=== PATIENT | female | born 1950 | race Caucasian/White ===

== ENCOUNTER 2025-03-16 15:30 | Observation (INO) | payer MEDICARE, BC, SELFPAY ==
--- OUTSIDE RECORDS SUMMARY | 2024-02-20 05:00 | XMS_ITS | Encounter Summary ---
Author Organization [place] [address] Care Team Providers Care Crystal Gazer Name Role Phone Aminah De Leon MD Primary Care Provider [phone] Rony Tena MD Unavailable Unavailable Encounter Details Date Type Department Care Team (Latest Contact Info) Description 02/20/2024 5:00 AM EDT Hospital Encounter [facility] Referral Lab 1 [place], [place] [id number] Clary Kenny MD [phone] [phone] Encounter for general adult medical examination without abnormal findings Social History Tobacco Use Types Packs/Day Years Used Date Smoking Tobacco: Never Passive Smoke Exposure: Yes Smokeless Tobacco: Never Alcohol Use Standard Drinks/Week Comments No 0 (1 standard drink = 0.6 oz pur e alcohol) [facility] Utilities Answer Date Recorded In the past 12 months has e electric, gas, oil, or water company threatened to shut off services in your home? No 02/17/2024 Overall Financial Resource Strain (CARDIA) Answe r Date Recorded How hard is it for you to pa y for the very basics like food, housing, medical care, and heating? Not hard at all 07/15/2024 PHQ-2 Answer Date Recorded PHQ-2 Total Score 0 07/15/2024 [facility] [place] of Occupat ional Health - Occupational Stress Questionnaire Answer Date Recorded Do you feel stress - tense, restless, nervous, or anxious, or unable to sleep at night because your mind is troubled all the time - these days? Not at all 07/15/2024 Exercise Vital Sign Answer Date Recorde d On average, how many days pe r week do you engage in moderate to strenuous exercise (like a brisk walk)? 5 days 07/15/2024 On average, how many minutes do you engage in exercise at this level? 30 min 07/15/2024 Hunger Vital Sign Answer Date Recorded Within the past 12 months, y ou worried that your food would run out before you got the money to buy more. Never true 07/15/19 25 Within the past 12 months, t he food you bought just didn't last and you didn't have money to get more. Never true 07/15/2024 PRAPARE - Transportation Answer Date Re corded In the past 12 months, has l ack of transportation kept you from medical appointments or from getting medications? No 08/2024 In the past 12 months, has l ack of transportation kept you from meetings, work, or from getting things needed for daily living? No 07/15/2024 [facility] IP Transportation Answer D ate Recorded In the past 12 months, has l ack of reliable transportation kept you from medical appointments, meetings, work or from getting things needed for daily living? 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 No 07/15/2024 9:14 AM Areli Gracia RMA Is the person blind or does he/she have serious difficulty seeing even when wearing glasses? No 07/15/2024 9:14 AM Areli Gracia RMA Does this person have seriou s difficulty walking or climbing stairs? No 07/15/2024 9:14 AM Areli Gracia RM A Does this person have diffic ulty dressing or bathing? No 07/15/2024 9:14 AM Areli Gracia R MA * Is the person deaf or does he/she have serious difficulty hearing? Answer Date of Assessment Author No 09/03/2023 12:36 PM Kassi Buenrostro RMA * Is the person blind or does he/she have serious difficulty seeing even when wearing glasses? Answer Date of Assessment Author No 09/03/2023 12:36 PM Kassi Buenrostro RMA * Does this person have serious difficulty walking or climbing stairs? Answer Date of Assessment Author No 09/03/2023 12:36 PM Kassi Buenrostro RMA * Does this person have difficulty dressing or bathing? Answer Date of Assessment Author No 09/03/2023 12:36 PM Kassi Buenrostro RMA * Because of a physical, mental or emotional condition, does this person have difficulty doing errands alone such as visiting a doctor's office or shopping? Answer Date of Assessment Author No 09/03/2023 12:36 PM Kassi Buenrostro RMA * PHQ-9 Total Score Answer Date of Assessment Author 0 07/15/2024 9:14 AM Agnes Gracia RMA * Question Answer Date of Assessment Author Little interest or pleasure in doing things 0 07/15/2024 9:14 AM Areli Gracia RM A Feeling down, depressed, or hopeless 0 08/2024 9:14 AM Areli Gracia RMA PHQ-2 Total Score 0 07/15/2024 9:14 AM Areli Gracia RMA * Question Answer Date of Assessment Author Feeling Nervous, Anxious, or on Edge 0 08/2024 9:14 AM Areli Gracia RMA Not Being Able to Stop or Co ntrol Worrying 0 07/15/2024 9:14 AM EST Briones, Areli, RM A Worrying too Much About Diff erent Things 0 07/15/2024 9:14 AM Areli Gracia RM A Trouble Relaxing 0 07/15/2024 9:14 AM Areli GarciaFABRICIO Being so Restless That it is Hard to Sit Still 0 07/15/2024 9:14 AM Areli Gracia, RM A Becoming Easily Annoyed or Irritable 0 08/2024 9:14 AM Areli Gracia RMCamila Feeling Afraid as if Somethi ng Awful Might Happen 0 07/15/2024 9:14 AM Areli Gracia RM A FOREIGN-7 Total Score 0 07/15/2024 9:14 AM Areli Gracia RMA * Suicide Severity Rating Answer Date of Assessment Author No Risk 09/04/2024 3:38 PM Vivien Flores RN * [place] Suicide Severity Rating Scale (Q shift for moderate and high) Question Answer Date of Assessment Author 1. In the past month, have y ou wished you were or wished you could go to sleep and not wake up? 0 09/04/2024 3:38 PM Candace Flores RN 2. In the past month, have y ou actually had any thoughts of killing yourself? (If no, skip to question 6) 0 09/04/2024 3:38 PM Candace Flores RN 6. Have you ever done anythi ng, started to do anything, or prepared to do anything to end your life? 0 09/04/2024 3:38 PM Candace Flores RN documented as of this encounter Mental Status * Cognitive and Functional Status Question Answer Entry Date Author Because of a physical, menta l or emotional condition, does this person have difficulty doing errands alone such as visiting a doctor's office or shopping? No 07/15/2024 9:14 AM Areli Gracia RM A Because of a physical, menta l or emotional condition, does this person have serious difficulty concentrating, remembering or making decisions? No 07/15/2024 9:14 AM EST Briones, Areli, RM A * Because of a physical, mental or emotional condition, does this person have serious difficulty concentrating, remembering or making decisions? Answer Entry Date Author No 09/03/2023 12:36 PM EST Kassi Duncan, FABRICIO documented in this encounter Plan of Treatment Upcoming Encounters Date Type Department Care Team (Late st Contact Info) Description 05/30/2025 10:30 AM EST Office Visit [facility]P Neurology [facility] [address] [place] [phone] Uvaldo Donahue MD [address] NELSON [address] [place] [address] 07/18/2025 1:00 PM EST Office Visit [facility] [place] [address] [place] [address] Rony Hylton MD [address] [place] [address] [place] [address] 07/25/2025 9:00 AM EST [facility] [address] [place], [place] [phone] Aminah De Leon MD [address] [place] [address] 12/08/2025 10:00 AM EDT Appointment [facility] VASCULAR 20 [facility] [address] [place] [address] Eleni Edwards APRN [address] [place] [address] DR HERRERA [address] [place] [address] 12/08/2025 11:00 AM EDT Office Visit SEP Vascular Surg Edg 20 [facility] [address] [place] [address] Eleni Edwards APRN [address] [place] [address] [address] [place] [address] documented as of this encounter Goals Goal Patient Goal Type Associated Problems Recent Progress Patient-Stated? Author Blood Pressure < 140/90 Blood Pressure 103/70(2024 10:32 AM EDT) No Janel Tena RMA BMI (Calculated) < 30 General 30.6(02/26/20 10:32 AM EDT) No Janel Tena RMA Maintain a healthy diet, exercise regularly and maintain an ideal body weight General No Janel Tena RMA HEMOGLOBIN A1C < 7.0 Result Component 5.9( 10:01 AM EDT) No Janel Tena RMA documented as of this encounter Results * (ABNORMAL) COMPREHENSIVE METABOLIC PANEL (02/27/2024 4:50 AM EDT) Sodium 143 136 - 145 mmol/L 02/27/2024 6:44 AM EDT [facility] Potassium 3.9 3.5 - 5.0 mmol/L 02/27/2024 6:44 AM EDT [facility] Chloride 106 98 - 107 mmol/L 02/27/2024 6:44 AM EDT [facility] Total CO2 29 22 - 29 mmol/L 02/27/2024 6:44 AM EDT [facility] Anion Gap 8 7 - 16 mmol/L 02/27/2024 6:44 AM EDT [facility] Calcium 9.3 8.8 - 10.4 mg/dL 02/27/2024 6:44 AM EDT [facility] Glucose Lvl 79 70 - 99 mg/dL 02/27/2024 6:44 AM EDT [facility] BUN 18 8 - 23 mg/dL 02/27/2024 6:44 AM EDT [facility] Creatinine 1.29 0.51 - 1.30 mg/dL 02/27/2024 6:44 AM EDT [facility] Albumin 3.9 3.2 - 4.6 gm/dL 02/27/2024 6:44 AM EDT [facility] Total Protein 5.2(L) 6.4 - 8.3 gm/dL 02/27/2024 6:44 AM EDT [facility] Bili Total 0.7 0.2 - 1.3 mg/dL 02/27/2024 6:44 AM EDT [facility], [facility] ALT 10 <=41 U/L 02/27/2024 6:44 AM EDT [facility] AST 12 <=40 U/L 02/27/2024 6:44 AM EDT [facility] [place] Alk Phos 39 36 - 123 U/L 02/27/2024 6:44 AM EDT [facility] eGFR (CKD-EPIcr 2020) 43(L) >=60 mL/min/1.7 3 m2 02/27/2024 6:44 AM EDT [facility] Comment:Estimated GFR was ca lculated using the CKD-EPIcr (2020) equation refit without race. The equation is recommended by the National Kidney Foundation - [place] [employer] of Nephrology Task Force. Blood VENOUS BLOOD / Unknown Venipuncture / Unknown 02/27/2024 4:50 AM EDT 02/27/2024 5:50 AM EDT us Clary Kenny MD CHEMISTRY ORDERABLES Final Result [facility] [address] [facility], [place] [address] [facility] [address] [place], [place] [phone] documented in this encounter Visit Diagnoses Diagnosis Encounter for general adult medical examination without abnormal findings Routine general medical examination at a health care facility documented in this encounter Additional Health Concerns Assessment Noted Time A fall risk assessment has been complete d for the patient 06/18/2023 9:00 AM EST documented as of this encounter Care Teams Crystal Gazer Relationship Specialty Start Date End Date Aminah De Leon MD [address] [place] [address] PCP - General 06/16/09 Rony Tena MD [address] [place] [address] Surgery-Vascular Surgery 10/11/11 documented as of this encounter
--- OUTSIDE RECORDS SUMMARY | 2024-02-20 05:00 | XMS_ITS | Encounter Summary ---
Author Organization [place] [address] Care Team Providers Care Weight Loss Counselor Name Role Phone Aminah De Leon MD Primary Care Provider [phone] Rony Tena MD Unavailable Unavailable Encounter Details Date Type Department Care Team (Late st Contact Info) Description 02/20/2024 5:00 AM EDT Hospital Encounter [facility] Referral Lab 1 [place], [place] [phone] Clary Kenny MD [address] [place] [id number] Social History Tobacco Use Types Packs/Day Years Used Date Smoking Tobacco: Never Passive Smoke Exposure: Yes Smokeless Tobacco: Never Alcohol Use Standard Drinks/Week Comments No 0 (1 standard drink = 0.6 oz pur e alcohol) [facility] Utilities Answer Date Recorded In the past 12 months has th e electric, gas, oil, or water company threatened to shut off services in your home? No 02/17/2024 Overall Financial Resource Strain (CARDIA) Answe r Date Recorded How hard is it for you to pa y for the very basics like food, housing, medical care, and heating? Not hard at all 07/15/2024 PHQ-2 Answer Date Recorded PHQ-2 Total Score 0 07/15/2024 [facility] [place] of Occupat ional Health - Occupational Stress [...] things needed for daily living? No 07/15/2024 [facility] IP Transportation Answer D ate Recorded In [...] Sit Still 0 07/15/2024 9:14 AM Areli Gracia RM A Becoming Easily Annoyed or Irritable 0 08/2024 9:14 AM Areli GraciaFABRICIO Feeling Afraid as if Somethi ng Awful Might Happen 0 07/15/2024 9:14 AM LILLY Briones Areli, RM A FOREIGN-7 Total Score 0 07/15/2024 9:14 AM Areli GraciaFABRICIO * Suicide Severity Rating Answer Date of Assessment Author No Risk 09/04/2024 3:38 PM Vivien Flores RN * [place] Suicide Severity Rating Scale (Q shift for [...] or making decisions? No 07/15/2024 9:14 AM Areli Gracia RM A * Because of a physical, mental or emotional condition, does this person have serious difficulty concentrating, remembering or making decisions? Answer Entry Date Author No 09/03/2023 12:36 PM EST Kassi Duncan RMA documented in this encounter Plan of Treatment Upcoming Encounters Date Type Department Care Team (Late st Contact Info) Description 05/30/2025 10:30 AM EST Office Visit [facility] Neurology [facility] [address] [place] [phone] Uvaldo Donahue MD [address] [address] 07/18/2025 1:00 PM EST Office Visit [facility] [place] [address] [place] [address] Rony Hylton MD [address] [place] [address] [place] [address] 07/25/2025 9:00 AM EST [facility] [address] [place] [address] Aminah De Leon MD [address] [place] [address] 12/08/2025 10:00 AM EDT Appointment [facility] VASCULAR 20 [facility] [address] [place] [address] Eleni Edwards APRN [address] [place] [address] DR HERRERA [address] [place] [address] 12/08/2025 11:00 AM EDT Office Visit SEP Vascular Surg Edg 20 [facility] [address] [place] [address] Eleni Edwards APRN [address] [place] [address] DR HERRERA [address] [place] [address] documented as of this encounter Goals Goal [...] Tena RMA documented as of this encounter Visit Diagnoses Not on filedocumented in this encounter Additional Health Concerns Assessment Noted Time A fall risk assessment has been complete d for the patient 06/18/2023 9:00 AM EST documented as of this encounter Care Teams Weight Loss Counselor Relationship Specialty Start Date End Date Aminah De Leon MD [address] [place], [place] [phone] PCP - General 06/16/09 Rony Tena MD [address] [place] [address] Surgery-Vascular Surgery 10/11/11 documented as of this encounter
--- OUTSIDE RECORDS SUMMARY | 2024-02-20 05:00 | XMS_ITS | Encounter Summary ---
Author Organization [place] [address] Care Team Providers Care Hydrochloric Acid Operator Name Role Phone Aminah De Leon MD Primary Care Provider [phone] Royn Tena MD Unavailable Unavailable Encounter Details Date Type Department Care Team (Latest Contact Info) Description 02/20/2024 5:00 AM EDT Hospital Encounter [facility] Referral Lab 1 [place], [place] [phone] Clary Kenny MD [address] [phone] Encounter for general adult medical examination without abnormal findings Social History Tobacco Use Types Packs/Day Years Used Date Smoking Tobacco: Never Passive Smoke Exposure: Yes Smokeless Tobacco: Never Alcohol Use Standard Drinks/Week Comments No 0 (1 standard drink = 0.6 oz pur e alcohol) [facility] Utilities Answer Date Recorded In the [...] Date Recorded PHQ-2 Total Score 0 07/15/2024 [facility] [place] of Occupat ional Health - Occupational Stress [...] things needed for daily living? No 07/15/2024 [facility] IP Transportation Answer D ate Recorded In [...] 09/04/2024 3:38 PM Vivien Flores RN * [place] Suicide Severity Rating Scale (Q shift for [...] No 09/03/2023 12:36 PM EST Kassi Duncan FABRICIO documented in this encounter Plan of Treatment Upcoming Encounters Date Type Department Care Team (Late st Contact Info) Description 05/30/2025 10:30 AM EST Office Visit SEP Neurology [facility] [address] [place] [phone] Uvaldo Donahue MD [address] NELSON [address] [place] [address] 07/18/2025 1:00 PM EST Office Visit [facility] [place] [address] [place], [place] [phone] Rony Hylton MD [address] [place] [address] [place] [address] 07/25/2025 9:00 AM EST [facility] [address] [place] [address] Aminah De Leon MD [address] [place] [address] 12/08/2025 10:00 AM EDT Appointment [facility] MED OFC VASCULAR 20 [facility] [address] [place] [address] Eleni Edwards APRN [address] [place] [address] DR H[address]ERA [address] [place] [id number] 12/08/2025 11:00 AM EDT Office Visit SEP Vascular Surg Edg 20 [facility] [address] [place] [address] Eleni Edwards APRN [address] [place] [address] DR [address] [place] [address] Scheduled Orders Name Type Priority Associated Diagnoses Orde r Schedule CBC WITH DIFF Lab Routine Encounter for general adult medical examination without abnormal findings ONCE for 1 Occurrences starting 02/20/2024 until 03/26/2024 documented as of this encounter Goals Goal [...] documented as of this encounter Visit Diagnoses Diagnosis Encounter for general adult medical examination without abnormal findings Routine general medical examination at a health care facility documented in this encounter Additional Health Concerns Assessment Noted Time A fall risk assessment has been complete d for the patient 06/18/2023 9:00 AM EST documented as of this encounter Care Teams Hydrochloric Acid Operator Relationship Specialty Start Date End Date Aminah De Leon MD [address] [place] [address] PCP - General 06/16/09 Rony Tena MD [address] [place] [address] Surgery-Vascular Surgery 10/11/11 documented as of this encounter
--- OUTSIDE RECORDS SUMMARY | 2024-02-20 05:00 | XMS_ITS | Encounter Summary ---
Author Organization [place] [address] Care Team Providers Care Label Remover Name Role Phone Aminah De Leon MD Primary Care Provider [phone] Rony Tena MD Unavailable Unavailable Encounter Details Date Type Department Care Team (Latest Contact Info) Description 02/20/2024 5:00 AM EDT Hospital Encounter [facility] Referral Lab 1 [place], [place] [phone] Clary Kenny MD [address] [phone] Encounter for general adult medical examination without abnormal findings Social History Tobacco Use Types Packs/Day Years Used Date Smoking Tobacco: Never Passive Smoke Exposure: Yes Smokeless Tobacco: Never Alcohol Use Standard Drinks/Week Comments No 0 (1 standard drink = 0.6 oz pur e alcohol) [facility] Utilities Answer Date Recorded In the [...] Date Recorded PHQ-2 Total Score 0 07/15/2024 [facility] [place] of Occupat ional Health - Occupational Stress [...] things needed for daily living? No 07/15/2024 [facility] IP Transportation Answer D ate Recorded [...] 09/04/2024 3:38 PM Vivien Flores RN * [place] Suicide Severity Rating Scale (Q shift for [...] 10:30 AM EST Office Visit SEP Neurology [facility] [address] [place] [phone] Uvaldo Donahue MD [address] N[address] [place] [address] 07/18/2025 1:00 PM EST Office Visit [facility] H&[facility] [place] [address] [place] [address] Rony Hylton MD [address] [place] [address] [place] [address] 07/25/2025 9:00 AM EST [facility] [address] [place], [place] [phone] Aminah De Leon MD [address] [place] [address] 12/08/2025 10:00 AM EDT Appointment [facility] MED OFC VASCULAR 20 [facility] [address] [place] [address] Eleni Edwards APRN [address] [place] [address] DR HERRERA [address] [place] [address] 12/08/2025 11:00 AM EDT Office Visit SEP Vascular Surg Edg 20 [facility] [address] [place] [address] Eleni Edwards APRN [address] [place] [address] [address] [place] [address] Scheduled Orders Name Type Priority Associated Diagnoses Orde r Schedule PREALBUMIN Lab Routine Encounter for general adult medical [...] documented as of this encounter Care Teams Label Remover Relationship Specialty Start Date End Date Aminah De Leon MD [address] [place], [place] [phone] PCP - General 06/16/09 Rony Tena MD [address] [place] [address] Surgery-Vascular Surgery 10/11/11 documented as of this encounter
--- OUTSIDE RECORDS SUMMARY | 2024-02-20 05:00 | XMS_ITS | Encounter Summary ---
Author Organization [place] [address] Care Team Providers Care Summer Nanny Name Role Phone Aminah De Leon MD Primary Care Provider [phone] Rony Tena MD Unavailable Unavailable Encounter Details Date Type Department Care Team (Latest Contact Info) Description 02/20/2024 5:00 AM EDT Hospital Encounter [facility] Referral Lab 1 [place], [place] [id number] Clary Kenny MD [address] [phone] Encounter for general adult medical examination without abnormal findings Social History Tobacco Use Types Packs/Day Years Used Date Smoking Tobacco: Never Passive Smoke Exposure: Yes Smokeless Tobacco: Never Alcohol Use Standard Drinks/Week Comments No 0 (1 standard drink = 0.6 oz pur e alcohol) [facility] Utilities Answer Date Recorded In [...] Date Recorded PHQ-2 Total Score 0 07/15/2024 [facility] of Occupat ional Health - Occupational Stress [...] things needed for daily living? No 07/15/2024 [facility] IP Transportation Answer D ate Recorded [...] 09/04/2024 3:38 PM Vivien Flores RN * [place] Suicide Severity Rating Scale (Q shift for [...] EST Office Visit SEP Neurology [facility] [address] [place] [id number] Uvaldo Donahue MD [address] NELSON [address] [place] [address] 07/18/2025 1:00 PM EST Office Visit [facility] [address] [place] [address] Rony Hylton MD [address] [place] [address] [place] [address] 07/25/2025 9:00 AM EST [facility] [address] [place], [place] [phone] Aminah De Leon MD [address] [place] [address] 12/08/2025 10:00 AM EDT Appointment [facility] VASCULAR 20 [facility] [address] [place] [address] Eleni Edwards APRN [address] [place] [address] DR HERRERA [address] [place] [address] 12/08/2025 11:00 AM EDT Office Visit SEP Vascular Surg Edg 20 [facility] [address] [place] [address] Eleni Edwards APRN [address] [place] [address] DR [address] [place] [address] documented as of this encounter Goals Goal Patient Goal Type Associated Problems Recent Progress Patient-Stated? Author Blood Pressure < 140/90 Blood Pressure 103/70(2024 10:32 AM EDT) No MallikaJanelFABRICIO BMI (Calculated) < 30 General 30.6(02/26/20 10:32 AM EDT) No MallikaJanleFABRICIO Maintain a healthy diet, exercise regularly and maintain an ideal body weight General No MallikaJanel RMCamila HEMOGLOBIN A1C < 7.0 Result Component 5.9( 10:01 AM EDT) No MallikaLevi gipsonena RMA documented as of this encounter Results * (ABNORMAL) PREALBUMIN (02/27/2024 4:50 AM EDT) Prealbumin 14.4(L) 20.0 - 40.0 mg/dL 02/27/2024 6:44 AM EDT [facility] Blood VENOUS BLOOD / Unknown Venipuncture / Unknown 02/27/2024 4:50 AM EDT 02/27/2024 5:50 AM EDT us Clary Kenny MD CHEMISTRY ORDERABLES Final Result [facility] [address] [place] [address] , [facility] [place] [phone] documented in this encounter Visit Diagnoses Diagnosis Encounter for general adult medical examination without abnormal findings Routine general medical examination at a health care facility documented in this encounter Additional Health Concerns Assessment Noted Time A fall risk assessment has been complete d for the patient 06/18/2023 9:00 AM EST documented as of this encounter Care Teams Summer Nanny Relationship Specialty Start Date End Date Aminah De Leon MD [address] [place] [address] PCP - General 06/16/09 Rony Tena MD [address] [place] [address] Surgery-Vascular Surgery 10/11/11 documented as of this encounter
--- OUTSIDE RECORDS SUMMARY | 2024-02-20 05:00 | XMS_ITS | Encounter Summary ---
Author Organization [place] [address] Care Team Providers Care Concrete Mixer Operator Name Role Phone Aminah De Leon MD Primary Care Provider [phone] Rony Tena MD Unavailable Unavailable Encounter Details Date Type Department Care Team (Latest Contact Info) Description 02/20/2024 5:00 AM EDT Hospital Encounter [facility] Referral Lab 1 [place], [place] [id number] Clary Kenny MD [address] [phone] Encounter for general adult medical examination without abnormal findings Social History Tobacco Use Types Packs/Day Years Used Date Smoking Tobacco: Never Passive Smoke Exposure: Yes Smokeless Tobacco: Never Alcohol Use Standard Drinks/Week Comments No 0 (1 standard drink = 0.6 oz pur e alcohol) [facility] Utilities Answer Date Recorded In the [...] Date Recorded PHQ-2 Total Score 0 07/15/2024 [facility] [place] of Occupat ional Health - Occupational Stress [...] things needed for daily living? No 07/15/2024 [facility] IP Transportation Answer D ate Recorded In [...] 09/04/2024 3:38 PM Vivien Flores RN * [place] Suicide Severity Rating Scale (Q shift for [...] EST Office Visit SEP Neurology [facility] [address] [place] [phone] Uvaldo Donahue MD [address] NELSON [address] [place] [address] 07/18/2025 1:00 PM EST Office Visit [facility] H&V [place] [address] [place] [address] Rony Hylton MD [address] [place] [address] [place] [address] 07/25/2025 9:00 AM EST [facility] [address] [place], [place] [phone] Aminah De Leon MD [address] [place] [address] 12/08/2025 10:00 AM EDT Appointment [facility] VASCULAR 20 [facility] 232 [place] [address] Eleni Edwards APRN [address] [place] [address] DR HERRERA [address] [place] [address] 12/08/2025 11:00 AM EDT Office Visit [facility]P Vascular Surg Edg 20 [facility] [address] [place] [address] Eleni Edwards APRN [address] [place] [address] DR [address] [place] [address] documented as of this encounter Goals Goal Patient Goal Type Associated Problems Recent Progress Patient-Stated? Author Blood Pressure < 140/90 Blood Pressure 103/70(2024 10:32 AM EDT) No MallikaJanelFABRICIO BMI (Calculated) < 30 General 30.6(02/26/20 10:32 AM EDT) No Mallika JanelFABRICIO Maintain a healthy diet, exercise regularly and maintain an ideal body weight General No MallikaJanel RMCamila HEMOGLOBIN A1C < 7.0 Result Component 5.9( 10:01 AM EDT) No MallikaLevi gipsonena RMA documented as of this encounter Results * (ABNORMAL) PREALBUMIN (02/20/2024 4:45 AM EDT) Prealbumin 14.7(L) 20.0 - 40.0 mg/dL 02/20/2024 6:12 AM EDT [facility] Blood VENOUS BLOOD / Unknown Venipuncture / Unknown 02/20/2024 4:45 AM EDT 02/20/2024 5:28 AM EDT us Clary Kenny MD CHEMISTRY ORDERABLES Final Result [facility] [address] [place] [address] , [facility] [place] [phone] documented in this encounter Visit Diagnoses Diagnosis Encounter for general adult medical examination without abnormal findings Routine general medical examination at a health care facility documented in this encounter Additional Health Concerns Assessment Noted Time A fall risk assessment has been complete d for the patient 06/18/2023 9:00 AM EST documented as of this encounter Care Teams Concrete Mixer Operator Relationship Specialty Start Date End Date Aminah De Leon MD [address] [place] [address] PCP - General 06/16/09 Rony Tena MD [address] [place] [address] Surgery-Vascular Surgery 10/11/11 documented as of this encounter
--- OUTSIDE RECORDS SUMMARY | 2024-02-20 05:00 | XMS_ITS | Encounter Summary ---
Author [place] [address] Care Team Providers Care Small Parts Shaper Operator Name Role Phone Aminah De Leon MD Primary Care Provider [phone] Rony Tena MD Unavailable Unavailable Encounter Details Date Type Department Care Team (Latest Contact Info) Description 02/20/2024 5:00 AM EDT Hospital Encounter [facility] Referral Lab 1 [place], [place] [phone] Clary Kenny MD [address] [phone] Encounter for general adult medical examination without abnormal findings Social History Tobacco Use Types Packs/Day Years Used Date Smoking Tobacco: Never Passive Smoke Exposure: Yes Smokeless Tobacco: Never Alcohol Use Standard Drinks/Week Comments No 0 (1 standard drink = 0.6 oz pur e alcohol) [place] Utilities Answer Date Recorded In the past [...] Date Recorded PHQ-2 Total Score 0 07/15/2024 [facility] of Occupat ional Health - Occupational Stress [...] things needed for daily living? No 07/15/2024 [facility] IP Transportation Answer D ate Recorded In [...] 09/04/2024 3:38 PM Vivien Flores RN * [place] Suicide Severity Rating Scale (Q shift for [...] 10:30 AM EST Office Visit SEP Neurology [facility] [address] [place] [phone] Uvaldo Donahue MD [address]ELSON [address] [place] [address] 07/18/2025 1:00 PM EST Office Visit [facility] [facility] [place] [address] [place], [place] [phone] Rony Hylton MD [address] [place] [address] [place] [address] 07/25/2025 9:00 AM EST [facility] [address] [place] [address] Aminah De Leon MD [address] [place] [address] 12/08/2025 10:00 AM EDT Appointment [facility] VASCULAR 20 [facility] [address] [place] [address] Eleni Edwards APRN [address] [place] [address] DR HERRERA [address] [place] [address] 12/08/2025 11:00 AM EDT Office Visit [facility]P Vascular Surg Edg 20 [facility] [address] [place] [address] Eleni Edwards APRN [address] [place] [address] DR [address] [place] [address] Scheduled Orders Name Type Priority Associated Diagnoses Orde r Schedule COMPREHENSIVE METABOLIC PANEL Lab Routine Encounter for general adult medical [...] documented as of this encounter Care Teams Small Parts Shaper Operator Relationship Specialty Start Date End Date Aminah De Leon MD [address] [place] [address] PCP - General 06/16/09 Rony Tena MD [address] [place] [address] Surgery-Vascular Surgery 10/11/11 documented as of this encounter
--- OUTSIDE RECORDS SUMMARY | 2024-02-20 05:00 | XMS_ITS | Encounter Summary ---
Author [place] [address] Care Team Providers Care Osteopathy Doctor Name Role Phone Aminah De Leon MD Primary Care Provider [phone] Rony Tena MD Unavailable Unavailable Encounter Details Date Type Department Care Team (Latest Contact Info) Description 02/20/2024 5:00 AM EDT Hospital Encounter [facility] Referral Lab 1 [place], [place] [phone] Clary Kenny MD [address] [phone] Encounter for general adult medical examination without abnormal findings Social History Tobacco Use Types Packs/Day Years Used Date Smoking Tobacco: Never Passive Smoke Exposure: Yes Smokeless Tobacco: Never Alcohol Use Standard Drinks/Week Comments No 0 (1 standard drink = 0.6 oz pur e alcohol) [facility] Utilities Answer Date Recorded In [...] Date Recorded PHQ-2 Total Score 0 07/15/2024 [facility] [place] of Occupat ional Health - Occupational Stress [...] things needed for daily living? No 07/15/2024 [facility] IP Transportation Answer D ate Recorded In [...] 09/04/2024 3:38 PM Vivien Flores RN * [place] Suicide Severity Rating Scale (Q shift for [...] Neurology [facility] [address] [place] [phone] Uvaldo Donahue MD [address] NELSON [address] [place] [address] 07/18/2025 1:00 PM EST Office Visit [facility] [place] [address] [place] [address] Rony Hylton MD [address] [place] [address] [place] [address] 07/25/2025 9:00 AM EST [facility] [address] [place], [place] [phone] Aminah De Leon MD [address] [place] [address] 12/08/2025 10:00 AM EDT Appointment [facility] VASCULAR [address] [facility] [address] [place] [address] Eleni Edwards APRN [address] [place] [address] DR [address]ERRERA [address] [place] [address] 12/08/2025 11:00 AM EDT Office Visit [facility]P Vascular Surg Edg [address] [facility] [address] [place] [address] Eleni Edwards APRN [address] [place] [address] DR [address] [place] [address] documented as of this encounter Goals Goal Patient Goal Type Associated Problems Recent Progress Patient-Stated? Author Blood Pressure < 140/90 Blood Pressure 103/70(2024 10:32 AM EDT) No Janel Tena RMA BMI (Calculated) < 30 General 30.6(02/26/20 25 10:32 AM EDT) No Janel Tena RMA Maintain a healthy diet, exercise regularly and maintain an ideal body weight General No Janel Tena RMA HEMOGLOBIN A1C < 7.0 Result Component 5.9( 10:01 AM EDT) No Janel Tena RMA documented as of this encounter Results * (ABNORMAL) CBC WITH DIFF (02/20/2024 4:45 AM EDT) WBC 4.5 3.7 - 10.3 x10(3)/mcL 02/20/2024 5:49 AM EDT [facility] RBC 3.12(L) 3.90 - 5.20 x10(6)/mcL 02/20/2024 5:49 AM EDT [facility] Hgb 9.1(L) 11.2 - 15.7 g/dL 02/20/2024 5:49 AM EDT [facility] Hct 29.0(L) 34.0 - 45.0 % 02/20/2024 5:49 AM EDT [facility] MCV 92.9 80.0 - 100.0 fL 02/20/2024 5:49 AM EDT [facility] MCH 29.2 26.0 - 34.0 pg 02/20/2024 5:49 AM EDT [facility] MCHC 31.4 30.7 - 35.5 g/dL 02/20/2024 5:49 AM EDT [facility] RDW 14.2 <=14.9 % 02/20/2024 5:49 AM EDT [facility] Platelet 126(L) 155 - 369 x10(3)/mcL 02/20/2024 5:49 AM EDT [facility] MPV 11.2 8.8 - 12.5 fL 02/20/2024 5:49 AM EDT [facility] Neut Percent 40.8 % 02/20/2024 5:49 AM EDT [facility] Comment:Neutrophils equals s egs plus bands Imm Gran% 0.2 % 02/20/2024 5:49 AM EDT [facility] Comment:Automated count of m etamyelocytes, myelocytes and promyelocytes. Lymph Percent 40.7 % 02/20/2024 5:49 AM EDT [facility] [place] Percent 12.6 % 02/20/2024 5:49 AM EDT [facility] Eos Percent 4.2 % 02/20/2024 5:49 AM EDT [facility] Baso Percent 1.5 % 02/20/2024 5:49 AM EDT [facility] Neut # 1.8 1.6 - 6.1 x10(3)/mcL 02/20/2024 5:49 AM EDT [facility] Comment:Neutrophils equals s egs plus bands IMMGRAN# 0.0 0.0 - 0.1 x10(3)/mcL 02/20/2024 5:49 AM EDT [facility] Comment:Automated count of m etamyelocytes, myelocytes and promyelocytes. An absolute IG <0.1 is reported as 0.0. Lymph # 1.8 1.2 - 3.9 x10(3)/mcL 02/20/2024 5:49 AM EDT [facility] [place] # 0.6 0.3 - 0.9 x10(3)/mcL 02/20/2024 5:49 AM EDT [facility] Eos# 0.2 0.0 - 0.5 x10(3)/mcL 02/20/2024 5:49 AM EDT [facility] Baso # 0.1 0.0 - 0.1 x10(3)/mcL 02/20/2024 5:49 AM EDT [facility] Blood VENOUS BLOOD / Unknown Venipuncture / Unknown 02/20/2024 4:45 AM EDT 02/20/2024 5:28 AM EDT us Clary Kenny MD HEMATOLOGY ORDERABLES Radha lawrence Result [facility] , [place] [address] documented in this encounter Visit Diagnoses Diagnosis Encounter for general adult medical examination without abnormal findings Routine general medical examination at a health care facility documented in this encounter Additional Health Concerns Assessment Noted Time A fall risk assessment has been complete d for the patient 06/18/2023 9:00 AM EST documented as of this encounter Care Teams Osteopathy Doctor Relationship Specialty Start Date End Date Aminah De Leon MD [address] [place] [address] PCP - General 06/16/09 Rony Tena MD [address] [place] [address] Surgery-Vascular Surgery 10/11/11 documented as of this encounter
--- OUTSIDE RECORDS SUMMARY | 2025-02-25 09:52 | XMS_ITS | Encounter Summary ---
Author Organization [place] [address] Care Team Providers Care Dental Lab Technician Name Role Phone Aminah De Leon MD Primary Care Provider [phone] Rony Tena MD Unavailable Unavailable Reason for Visit * Reason Comments Follow-up iron deficiency anem ia due to chronic blood loss Encounter Details Date Type Department Care Team (Latest Contact Info) Description 02/25/2025 9:52 AM EDT - 02/25/2025 11:59 PM EDT Hospital Encounter [facility] [address] [place] [address] Suhas Merino MD [address] [place], [place] [id number] Iron deficiency anemia due to chronic blood loss (Primary Dx); Vitamin B12 deficiency Discharge Disposition: Home or Self Care Social History Tobacco Use Types Packs/Day Years Used Date Smoking Tobacco: Never Passive Smoke Exposure: Yes Smokeless Tobacco: Never Tobacco Cessation:Counseling Given: Not Answered Alcohol Use Standard Drinks/Week Comments No 0 (1 standard drink = 0.6 oz pur e alcohol) [facility] Utilities Answer Date Recorded In the [...] Date Recorded PHQ-2 Total Score 0 07/15/2024 [facility] - Occupational Stress [...] things needed for daily living? No 07/15/2024 [facility] IP Transportation Answer D ate [...] on file documented as of this encounter Last Filed Vital Signs Vital Sign Reading Time Taken Comments Blood Pressure 103/70 02/25/2025 10:32 AM EDT Pulse 58 02/25/2025 10:32 AM EDT Temperature 36.4 C (97.5 F) 02/25/2025 10:32 AM EDT Respiratory Rate 16 02/25/2025 10:32 AM EDT Oxygen Saturation 97% 02/25/2025 10:32 AM EDT Inhaled Oxygen Concentration - - Weight 85.7 kg (189 lb) 02/25/2025 10:32 AM EDT Height 167.6 cm (5' 6 ) 02/25/2025 10:32 AM EDT Body Mass Index 30.51 02/25/2025 10:32 AM EDT documented in this encounter Functional Status * Is the person deaf or does he/she have serious difficulty hearing? Answer Date of Assessment Author No 07/15/2024 9:14 AM Agnes Gracia RMA * Is the person blind or does he/she have serious difficulty seeing even when wearing glasses? Answer Date of Assessment Author No 07/15/2024 9:14 AM Agnes Gracia RMA * Does this person have serious difficulty walking or climbing stairs? Answer Date of Assessment Author No 07/15/2024 9:14 AM Agnes Gracia RMA * Does this person have difficulty dressing or bathing? Answer Date of Assessment Author No 07/15/2024 9:14 AM gAnes Gracia RMA * Because of a physical, mental or emotional condition, does this person have difficulty doing errands alone such as visiting a doctor's office or shopping? Answer Date of Assessment Author No 07/15/2024 9:14 AM Agnes Gracia RMA documented as of this encounter Mental Status * Because of a physical, mental or emotional condition, does this person have serious difficulty concentrating, remembering or making decisions? Answer Entry Date Author No 07/15/2024 9:14 AM Agnes Gracia RMA documented in this encounter Medications at Time of Discharge acetaminophen 325 mg Oral Tab Take 2 Tabs by mouth every 4 hours as needed for Fever or Headaches. 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 0 Blood Sugar Diagnostic [facility] Strip 1 Strip by [facility].(Non-Macario g; Combo Route) route 2 times daily. 180 Strip 3 5 Blood-Glucose Meter [facility] MiscIndications:Type 2 diabetes mellitus with diabetic polyneuropathy, without long-term current use of insulin ([facility]) 1 m by [facility].(Non-Macario g; Combo Route) route daily. 1 Each 4 brimonidine (ALPHAGAN) 0.2 % Opht Drops INSTILL 1 DROP INTO LEFT EYE EVERY 12 HOURS 2 busPIRone (BUSPAR) 15 mg Oral TabletIndications:Mixed anxiety and depressive disorder TAKE 1/2 TO 1 TABLET TWICE DAILY NEEDED 120 Tablet 3 5 CALCIUM CARBONATE/VITAMIN D3 (VITAMIN D-3 ORAL) Take 2,000 mg by mouth daily. carvediloL (COREG) 25 mg Oral TabletIndications:Essenti al hypertension,Takotsubo cardiomyopathy,Pure hypercholesterolemia Take 1 Tablet by mouth 2 times daily (with meals). 180 Tablet 3 5 clopidogreL (PLAVIX) 75 mg Oral TabletIndications:Atheros clerosis of [place] artery of both lower extremities with intermittent claudication,PAD (peripheral artery disease) Take 1 Tablet by mouth daily. 100 Tablet 3 5 dorzolamide-timoloL (COSOPT) 22.3-6.8 mg/mL Opht Drops Place 1 Drop into both eyes 2 times daily. 1 FLUoxetine (PROZAC) 40 mg Oral CapsuleIndications:Mixed anxiety and depressive disorder Take 1 Capsule by mouth daily. 100 Capsule 3 5 gabapentin (NEURONTIN) 300 mg Oral CapsuleIndications:Type 2 diabetes mellitus with diabetic polyneuropathy, without long-term current use of insulin (HCC),Diabetes mellitus with peripheral circulatory disorder (HCC) Take 2 Capsules by mouth 2 times daily. 120 Capsule 5 5 latanoprost (XALATAN) 0.005 % Opht Drops Apply 1 Drop to eye nightly. Left nightly 1 Leg Brace [facility] MiscIndications:Right foot drop,Right peroneal mononeuropathy 1 Device by Mis.(Non-Macario g; Combo Route) route daily. NEEDS AFO for R side 1 Each 4 losartan (COZAAR) 25 mg Oral Tablet Take 1 Tablet by mouth daily. 30 Tablet 11 5 metFORMIN (GLUCOPHAGE) 500 mg Oral TabletIndications:Type 2 diabetes mellitus with diabetic polyneuropathy, without long-term current use of insulin (HCC),Diabetes mellitus with peripheral circulatory disorder (HCC) 1 daily c supper 100 Tablet 3 5 pediatric multivitamin (FLINTSTONES MULTIVITAMIN) Oral Tablet, ChewableIndications:Right peroneal mononeuropathy Take 1 Tablet by mouth 2 times daily. 4 rosuvastatin (CRESTOR) 20 mg Oral Tablet Take 1 Tablet by mouth nightly. 100 Tablet 3 5 documented as of this encounter Discharge Disposition Disposition Code Departure Means Destination Home or Self Care documented in this encounter Progress Notes * Suhas Merino MD - 02/25/2025 10:20 AM EDT Images from the original note were not included. ONCOLOGY FOLLOW-UP: Primary Oncologist: Suhas Merino MD ONCOLOGY PROBLEM LIST: Iron Deficiency Anemia Vitamin B12 Deficiency CURRENT TREATMENT: Oral ferrous sulfate 325 mg every other day 1000 mcg of Vitamin B12 daily INTERVAL HISTORY: Ms. Moya is a 74 y.o. female who is here for follow up. Patient states that since last visit doingwell. No complaints. Mild fatigue overall. Appetite is good. Reviewed past medical, surgical, family, and social histories. PHYSICAL EXAM: Vitals: 02/25/25 1032 BP: 103/70 Pulse: 58 Resp: 16 Temp: 97.5 ??F (36.4 ??C) SpO2: 97% Wt Readings from Last 3 Encounters: 02/25/25 189 lb (85.7 kg) 01/12/25 193 lb (87.5 kg) 11/11/24 190 lb (86.2 kg) GENERAL APPEARANCE: Alert & Cooperative, Oriented X 3 LABS: CBC: Lab Results Component Value Date/Time WBC 4.4 02/25/2025 10:03 AM WBC 9.4 04/19/2017 01:40 PM RBC 4.39 02/25/2025 10:03 AM RBC 5.25 (H) 04/19/2017 01:40 PM PLT 147 (L) 02/25/2025 10:03 AM PLT 218 04/19/2017 01:40 PM CMP: Lab Results Component Value Date NA 139 02/25/2025 K 4.4 02/25/2025 CL 105 02/25/2025 CO2 23 02/25/2025 ANIONGAP 11 02/25/2025 CALCIUM 9.8 02/25/2025 GLU 113 (H) 02/25/2025 BUN 17 02/25/2025 CREATININE 1.24 02/25/2025 ALBUMIN 4.4 02/25/2025 PROT 6.9 02/25/2025 LABBILI 0.7 02/25/2025 ALT 11 02/25/2025 AST 18 02/25/2025 GFRAFRAM 101 05/22/2021 GFRNONAFRAM 87 05/22/2021 IMAGING/Testing All relevant images were reviewed in detail with the patient. All questions were addressed and answered in great detail. No results found. ASSESSMENT AND PLAN: Patient is a 73 y.o. female with a PMHx of COPD, Anxiety, PAD, Depression, DMII, HLD, HTN, ERI who is here to for follow up with hematology regarding anemia. Thrombocytopenia Vitamin B12 Deficiency Iron Deficiency Anemia H Pylori + Gastritis Negative for myeloma workup. B12 deficiency diagnosed and started on replacement along with iron replacement. Anemia worsened and had EGD/colonoscopy with tubular adenomas seen and H pylori positive which has been treated. Counts today are good with hgb of 12.6. Thrombocytopenia improved to 147. NoGI symptoms. -Level pending -Continue oral iron -Continue Vitamin B12 1000 mcg daily -GI repeat endoscopy in 5 years with colonoscopy (2029) Hypokalemia K 3.3. Possibly diarrhea induced. Encouraged fluid electrolyte hydration and bananas and additionalsources of K. She requests Dr. De Leon be cc regarding this. Follow up PRN A total of 22 minutes of the encounter was spent in performing the following complex tasks: 1) Reviewing medical records in [facility] and if applicable outside records as well 2) Ordering labs and reviewing results 3) Obtaining history and performing a physical exam 4) Counseling and educating patient, family, and caregiver(s) 5) Ordering medications, labs/tests (including independent interpretation of results when not reported separately), procedures and coordinating care amongst other healthcare professionals 6) Documentation in the EMR After the visit, the patient was given the opportunity to ask questions and all questions were answered to the patient's satisfaction. Patient agrees to the plan as highlighted above in my note and knows when/who to call regarding any concerning symptoms or questions. Suhas Merino MD Hematology/Oncology documented in this encounter Miscellaneous Notes * Addendum Note - Suhas Merino MD - 02/25/2025 10:20 AM EDTEncounter addended by: Suhas Merino MD on: 02/25/2025 11:27 AM Actions taken: Clinical Note Signed documented in this encounter Plan of Treatment Upcoming Encounters Date Type Department Care Team (Late st Contact Info) Description 05/30/2025 10:30 AM EST Office Visit [facility] Neurology [facility] [address] [place] [id number] Uvaldo Donahue MD [address] [address] 07/18/2025 1:00 PM EST Office Visit [facility] H&V [address] [address] Rony Hylton MD [address] [place] [address] [place] [address] 07/25/2025 9:00 AM EST Office Visit [facility] [address] [place] [address] Aminah De Leon MD [address] [place] [address] 12/08/2025 10:00 AM EDT Appointment [facility] VASCULAR [address] [place] [address] Eleni Edwards, [employer]ECT [address] [place] [address] [address] [place] [address] 12/08/2025 11:00 AM EDT Office Visit [facility] Vascular Surg Edg [address] [place] [address] Eleni Edwards [address] [place] [address] documented as of this encounter Goals Goal [...] documented as of this encounter Results * VITAMIN B12/ FOLIC ACID (02/25/2025 10:03 AM EDT) Vitamin B12 1,216 232 - 1,245 pg/mL 02/25/2025 5:09 PM EDT [facility] Folate >16.00 >=4.80 ng/mL 02/25/2025 5:09 PM EDT [facility] Blood VENOUS BLOOD / Unknown Venipuncture / Unknown 02/25/2025 10:03 AM EDT 02/25/2025 10:06 AM EDT Narrative [facility]REF[facility] - 02/25/2025 5:09 PM EDT Ingestion of cuco doses of biotin (>5 mg/day) taken within 8 hours of drawing blood sample can interfere with this immunoassay test. Suhas Merino MD CHEMISTRY ORDERABLES Final Res ult Performing Organization Address [facility]/ZIP Co de Phone Number [facility] [address] , [place] [address] * FERRITIN (02/25/2025 10:03 AM EDT) Ferritin 116 30 - 150 ng/mL 02/25/2025 5:40 PM EDT [facility]REFERRED [facility] Comment:The lower threshold of 30 is not statistically defined, nor internally validated. The threshold has been updated to more closely reflect a physiologic basis. Tracie Z, et al. Physiologically based serum ferritin thresholds for iron deficiency in children and non- women: a [place] National Health and Nutrition Examination Surveys (NHANES) serial cross-sectional study. Lancet Haematol 2020;8:e572-82. Blood VENOUS BLOOD / Unknown Venipuncture / Unknown 02/25/2025 10:03 AM EDT 02/25/2025 10:06 AM EDT Narrative [facility] - 02/25/2025 5:40 PM EDT Ingestion of cuco doses of biotin (>5 mg/day) taken within 8 hours of drawing blood sample can interfere with this immunoassay test. Suhas Merino MD CHEMISTRY ORDERABLES Final Res ult Performing Organization Address [facility]/ZIP Co de Phone Number [facility] [address] , [place] [address] * IRON+TIBC (02/25/2025 10:03 AM EDT) Iron 70 30 - 160 mcg/dL 02/25/2025 5:40 PM EDT [facility] Transferrin 241 200 - 360 mg/dL 02/25/2025 5:40 PM EDT [facility] Trans[employer]in Saturation 21 20 - 50 % 02/25/2025 5:40 PM EDT [facility] TIBC 337 250 - 400 mcg/dL 02/25/2025 5:40 PM EDT [facility] Blood VENOUS BLOOD / Unknown Venipuncture / Unknown 02/25/2025 10:03 AM EDT 02/25/2025 10:06 AM EDT us Suhas Merino MD CHEMISTRY ORDERABLES Final Res ult [facility] [employer] [address] [facility] [place] [address] documented in this encounter Visit Diagnoses Diagnosis Iron deficiency anemia due to chronic blood loss- Primary Iron deficiency anemia secondary to blood loss (chronic) Vitamin B12 deficiency Other B-complex deficiencies documented in this encounter Additional Health Concerns Assessment Noted Time A fall risk assessment has been complete d for the patient 07/15/2024 9:12 AM EST documented as of this encounter Care Teams Dental Lab Technician Relationship Specialty Start Date End Date Aminah De Leon MD [address] [place] [address] PCP - General 06/16/09 Rony Tena MD [address] [place] [address] Surgery-Vascular Surgery 10/11/11 documented as of this encounter
--- OUTSIDE RECORDS SUMMARY | 2025-02-25 09:52 | XMS_ITS | Encounter Summary ---
Author Organization [place] [address] Care Team Providers Care Sales Technician Name Role Phone Aminah De Leon MD Primary Care Provider [phone] Rony Tena MD Unavailable Unavailable Encounter Details Date Type Department Care Team (Latest Contact Info) Description 02/25/2025 9:52 AM EDT - 02/25/2025 11:59 PM EDT Hospital Encounter [facility] [address] [place] [address] Iron deficiency anemia due to chronic blood loss; Vitamin B12 deficiency Discharge Disposition: Home or Self Care Social History Tobacco Use Types Packs/Day Years Used Date Smoking Tobacco: Never Passive Smoke Exposure: Yes Smokeless Tobacco: Never Alcohol Use Standard Drinks/Week Comments No 0 (1 standard drink = 0.6 oz pur e alcohol) [facility] Utilities Answer Date Recorded In the past [...] Date Recorded PHQ-2 Total Score 0 07/15/2024 [facility] [place] of Occupat ional Health - Occupational Stress [...] things needed for daily living? No 07/15/2024 [facility] IP Transportation Answer D ate [...] as of this encounter Functional Status * Is the [...] 07/15/2024 9:14 AM Agnes Gracia RMA * Because of a physical, [...] hours as needed for Fever or Headaches. 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 0 Blood Sugar Diagnostic Misc Strip 1 Strip by [facility]Non-Macario g; Combo Route) route 2 times daily. 180 Strip 3 5 Blood-Glucose Meter [facility] MiscIndications:Type 2 diabetes mellitus with diabetic polyneuropathy, without long-term current use of insulin (HCC) 1 m by [facility]Non-Macario g; Combo Route) route daily. 1 Each [...] (PLAVIX) 75 mg Oral TabletIndications:Atheros clerosis [place] artery of both lower extremities with intermittent [...] eye nightly. Left nightly 1 Leg Brace [facility] MiscIndications:Right foot drop,Right peroneal mononeuropathy 1 Device by [employer](Non-Macario g; Combo Route) route daily. NEEDS AFO for R side 1 Each 4 losartan (COZAAR) 25 mg Oral Tablet Take 1 Tablet by mouth daily. 30 Tablet 11 5 metFORMIN (GLUCOPHAGE) 500 mg Oral TabletIndications:Type 2 diabetes mellitus with diabetic polyneuropathy, without long-term current use of insulin (HCC),Diabetes mellitus with peripheral circulatory disorder ([facility]) 1 daily c supper 100 Tablet 3 5 pediatric multivitamin (FLINTSTONES MULTIVITAMIN) Oral Tablet, ChewableIndications:Right peroneal mononeuropathy Take 1 Tablet by mouth 2 times daily. 4 rosuvastatin (CRESTOR) 20 mg Oral Tablet Take 1 Tablet by mouth nightly. 100 Tablet 3 5 documented as of this encounter Discharge Disposition Disposition Code Departure Means Destination Home or Self Care documented in this encounter Plan of Treatment Upcoming Encounters Date Type Department Care Team (Late st Contact Info) Description 05/30/2025 10:30 AM EST Office Visit [facility] Neurology [facility] [address] [place] [id number] Uvaldo Donahue MD [address] [place] [address] 07/18/2025 1:00 PM EST Office Visit [facility] [place] [address] [place] [address] Rony Hylton MD [address] [place] [address] [place] [address] 07/25/2025 9:00 AM EST [facility] [address] [place] [address] [place] [address] [place] [address] 12/08/2025 10:00 AM EDT Appointment [facility]C [facility] [address] [place] [address] Eleni Edwards [address] HERRERA [address] [place] [address] 12/08/2025 11:00 AM EDT Office Visit [facility]P Vascular Surg [facility] [address] [place] [address] Eleni Edwards APRN [address] [place] [address] DR HERRERA [address] [place] [address] documented as of this encounter Goals Goal [...] Tena RMA documented as of this encounter Procedures Procedure Name Priority Date/Time Associated Diagnosis Comments IRON+TIBC Routine 02/25/2025 10:03 AM EDT Iron deficiency anemia due to chronic blood loss Vitamin B12 deficiency VITAMIN B12/ FOLIC ACID Routine 02/25/2025 10:03 AM EDT Iron deficiency anemia due to chronic blood loss Vitamin B12 deficiency CBC WITH DIFF STAT 02/25/2025 10:03 AM EDT Iron deficiency anemia due to chronic blood loss Vitamin B12 deficiency FERRITIN Routine 02/25/2025 10:03 AM EDT Iron deficiency anemia due to chronic blood loss Vitamin B12 deficiency COMPREHENSIVE METABOLIC PANEL STAT 02/25/2025 10:03 AM EDT Iron deficiency anemia due to chronic blood loss Vitamin B12 deficiency documented in this encounter Results * IRON+TIBC (02/25/2025 10:03 AM EDT) Iron 70 30 - 160 mcg/dL 02/25/2025 5:40 PM EDT [facility] Transferrin 241 200 - 360 mg/dL 02/25/2025 5:40 PM EDT [facility] Transferrin Saturation 21 20 - 50 % 02/25/2025 5:40 PM EDT [facility] TIBC 337 250 - 400 mcg/dL 02/25/2025 5:40 PM EDT [facility] Blood VENOUS BLOOD / Unknown Venipuncture / Unknown 02/25/2025 10:03 AM EDT 02/25/2025 10:06 AM EDT us Suhas Merino MD CHEMISTRY ORDERABLES Final Res ult [facility] [address] [place] [address] * FERRITIN (02/25/2025 10:03 AM EDT) Ferritin 116 30 - 150 ng/mL 02/25/2025 5:40 PM EDT [facility] Comment:The lower threshold of 30 is not statistically defined, nor internally validated. The threshold has been updated to more closely reflect a physiologic basis. Tracie Honeycutt, et al. Physiologically based serum ferritin thresholds for iron deficiency in children and non- women: a [place] National Health and Nutrition Examination Surveys (NHANES) serial cross-sectional study. Lancet Haematol 2021;8:e572-82. Blood VENOUS BLOOD / Unknown Venipuncture / Unknown 02/25/2025 10:03 AM EDT 02/25/2025 10:06 AM EDT Narrative [facility] - 02/25/2025 5:40 PM EDT Ingestion of cuco doses of biotin (>5 mg/day) taken within 8 hours of drawing blood sample can interfere with this immunoassay test. Suhas Merino MD CHEMISTRY ORDERABLES Final Res ult [facility] [address] , [place] [address] * VITAMIN B12/ FOLIC ACID (02/25/2025 10:03 AM EDT) Vitamin B12 1,216 232 - 1,245 pg/mL 02/25/2025 5:09 PM EDT [facility] Folate >16.00 >=4.80 ng/mL 02/25/2025 5:09 PM EDT [facility] Blood VENOUS BLOOD / Unknown Venipuncture / Unknown 02/25/2025 10:03 AM EDT 02/25/2025 10:06 AM EDT Narrative [facility] - 02/25/2025 5:09 PM EDT Ingestion of cuco doses of biotin (>5 mg/day) taken within 8 hours of drawing blood sample can interfere with this immunoassay test. us Suhas Merino MD CHEMISTRY ORDERABLES Final Res ult [facility] [address] [facility] [place] [id number] * (ABNORMAL) COMPREHENSIVE METABOLIC PANEL (02/25/2025 10:03 AM EDT) Sodium 139 136 - 145 mmol/L 02/25/2025 10:30 AM EDT [facility] Potassium 4.4 3.5 - 5.0 mmol/L 02/25/2025 10:30 AM EDT [facility] Chloride 105 98 - 107 mmol/L 02/25/2025 10:30 AM EDT [facility] Total CO2 23 22 - 29 mmol/L 02/25/2025 10:30 AM [facility] Anion Gap 11 7 - 16 mmol/L 02/25/2025 10:30 AM EDT [facility] Calcium 9.8 8.8 - 10.4 mg/dL 02/25/2025 10:30 AM EDT [facility] Glucose Lvl 113(H) 70 - 99 mg/dL 02/25/2025 10:30 AM EDT [facility] BUN 17 8 - 23 mg/dL 02/25[facility]2025 [facility] Creatinine 1.24 0.51 - 1.30 mg/dL 02/25/2025 10:[facility] Albumin 4.4 3.2 - 4.6 gm/dL 02/25/2025 10:30 AM EDT [facility] Total Protein 6.9 6.4 - 8.3 gm/dL 02/25/2025 10:30 AM EDT [facility] Bili Total 0.7 0.2 - 1.3 mg/dL 02/25/2025 10:30 AM EDT [facility] ALT 11 <=41 U/L 02/25/2025 10:[facility] AST 18 <=40 U/L 02/25/2025 10:30 AM EDT [facility] Alk Phos 63 36 - 123 U/L 02/25/2025 10:30 AM EDT [facility] eGFR (CKD-EPIcr 2020) 45(L) >=60 mL/min/1.7 3 m2 02/25/2025 10:30 AM EDT [facility] Comment:Estimated GFR was ca lculated using the CKD-EPIcr (2020) equation refit without race. The equation is recommended by the National Kidney Foundation - [place] [employer] of Nephrology Task Force. Blood VENOUS BLOOD / Unknown Venipuncture / Unknown 02/25/2025 10:03 AM EDT 02/25/2025 10:06 AM EDT us Suhas Merino MD CHEMISTRY ORDERABLES Final Res ult [facility] [address] [place] [address] * (ABNORMAL) CBC WITH DIFF (02/25/2025 10:03 AM EDT) WBC 4.4 3.7 - 10.3 x10(3)/mcL 02/25/2025 10:09 AM EDT [facility] RBC 4.39 3.90 - 5.20 x10(6)/mcL 02/25/2025 10:09 AM EDT [facility] Hgb 12.6 11.2 - 15.7 g/dL 02/25/2025 10:09 AM EDT [facility] Hct 40.2 34.0 - 45.0 % 02/25/2025 10:09 AM EDT [facility] MCV 91.6 80.0 - 100.0 fL 02/25/2025 10:09 AM EDT [facility] MCH 28.7 26.0 - 34.0 pg 02/25/2025 10:09 AM EDT [facility] MCHC 31.3 30.7 - 35.5 g/dL 02/25/2025 10:09 AM EDT [facility] RDW 12.8 <=14.9 % 02/25/2025 10:09 AM EDT [facility] Platelet 147(L) 155 - 369 x10(3)/mcL 02/25/2025 10:09 AM EDT [facility] MPV 10.5 8.8 - 12.5 fL 02/25/2025 10:09 AM EDT [facility] Neut Percent 57.2 % 02/25/2025 10:09 AM EDT [facility] Comment:Neutrophils equals s egs plus bands Imm Gran% 0.2 % 02/25/2025 10:09 AM EDT [facility] Comment:Automated count of m etamyelocytes, myelocytes and promyelocytes. Lymph Percent 28.9 % 02/25/2025 10:09 AM EDT [facility] Elbert Percent 8.4 % 02/25/2025 10:09 AM EDT [facility] Eos Percent 3.9 % 02/25/2025 10:09 AM EDT [facility] Baso Percent 1.4 % 02/25/2025 10:09 AM EDT [facility] Neut # 2.5 1.6 - 6.1 x10(3)/mcL 02/25/2025 10:09 AM T [facility] Comment:Neutrophils equals s egs plus bands IMMGRAN# 0.0 0.0 - 0.1 x10(3)/mcL 02/25/2025 10:09 AM [facility] Comment:Automated count of m etamyelocytes, myelocytes and promyelocytes. An absolute IG <0.1 is reported as 0.0. Lymph # 1.3 1.2 - 3.9 x10(3)/mcL 02/25/2025 10:09 AM EDT [facility] Elbert # 0.4 0.3 - 0.9 x10(3)/mcL 02/25/2025 10:09 AM EDT [facility] Eos# 0.2 0.0 - 0.5 x10(3)/mcL 02/25/2025 10:09 AM EDT [facility] Baso # 0.1 0.0 - 0.1 x10(3)/mcL 02/25/2025 10:09 AM EDT [facility] Blood VENOUS BLOOD / Unknown Venipuncture / Unknown 02/25/2025 10:03 AM EDT 02/25/2025 10:06 AM EDT us Suhas Merino MD HEMATOLOGY ORDERABLES Final Re sult [facility] [address] [place] [address] documented in this encounter Visit Diagnoses Diagnosis Iron deficiency anemia due to chronic blood loss Iron deficiency anemia secondary to blood loss (chronic) Vitamin B12 deficiency Other B-complex deficiencies documented in this encounter Additional Health Concerns Assessment Noted Time A fall risk assessment has been complete d for the patient 07/15/2024 9:12 AM EST documented as of this encounter Care Teams Sales Technician Relationship Specialty Start Date End Date Aminah De Leon MD [address] [place] [address] PCP - General 06/16/09 Rony Tena MD [address] [place] [address] Surgery-Vascular Surgery 10/11/11 documented as of this encounter
[2025-03-16] VITALS (10 sets, daily range): BP systolic 116–161; BP diastolic 61–81; PULSE 58–68; RESP 10–18; TEMP 36.7–36.9; O2SAT 94–100; BMI 29.9; BMI 29.5
--- NOTE | 2025-03-16 15:31 | PC.NURSE ---
FSBS 178
--- NOTE | 2025-03-16 15:34 | CT_ITS ---
FINAL REPORT TECHNIQUE: thin section axial CT with and without IV contrast supplemented with multiplanar 3-D reconstruction of the head. This study was performed with techniques to keep radiation doses as low as reasonably achievable, (ALARA)individualized dose reduction techniques using automated exposure control or adjustment of mA and/or kV according to the patient's size were employed. CLINICAL HISTORY: possible stroke FINDINGS: The cranial circulation is unremarkable. There is no significant stenosis, aneurysm or occlusion. IMPRESSION: No evidence of stenosis or major branch occlusion. Reviewed, Interpreted and Dictated by Mian San MD Transcribed by Sarah Vaughan Authenticated and [facility]
--- NOTE | 2025-03-16 15:34 | CT_ITS ---
FINAL REPORT TECHNIQUE: NASCET technique utilized for stenosis evaluation. CLINICAL HISTORY: possible stroke FINDINGS: RIGHT CAROTID: No significant stenosis is seen of the cervical common or internal carotid artery. LEFT CAROTID: No significant stenosis seen of the cervical common or internal carotid artery. VERTEBRALS: The vertebral arteries are patent and symmetric. No significant stenosis is present. There is an elongated left thyroid lobe extending into the superior mediastinum. There is a thyroid nodule in the lower pole of the left lobe measuring 2.0 cm. IMPRESSION: No significant arterial abnormality. Left thyroid lobe nodule. Recommend follow-up ultrasound. Reviewed, Interpreted and Dictated by Mian San MD Transcribed by Sarah Vaughan Authenticated and . [facility]
--- NOTE | 2025-03-16 15:34 | CT_ITS ---
FINAL REPORT TECHNIQUE: Axial CT images were performed through the head. Coronal reformatted images were submitted. This study was performed with techniques to keep radiation doses as low as reasonably achievable (ALARA). Individualized dose reduction techniques using automated exposure control or adjustment of mA and/or kV according to the patient's size were employed. CLINICAL HISTORY: possible stroke COMPARISON: none FINDINGS: There is mild atrophy with proportional ventriculomegaly. There is no evidence of hemorrhage. There is no mass or edema identified. Hyperostosis frontalis interna. The paranasal sinuses are well aerated. IMPRESSION: No acute intracranial process. Reviewed, Interpreted and Dictated by Mian San MD Transcribed by Camelia Woodall Authenticated and [facility]
[2025-03-16] MEDS: IOPAMIDOL-370 (76%);100ML BOTTLE 80 ML IV (15:39)
[2025-03-16] MEDS: SODIUM CHLORIDE 0.9% 10ML SYR (RAD ONLY) 10 ML IV (15:39)
[2025-03-16] MEDS: 0.9 % SODIUM CHLORIDE 50 ML VIAL IV (15:39)
[2025-03-16 15:42] LABS: Hematocrit 38.5 % (37.0-47.0); Hemoglobin 12.3 g/dL (12.2-16.2); Immature Granulocytes % 0.2 %; Mean Corpuscular HGB Conc 31.9 g/dL (31.8-35.4); Mean Corpuscular Hemoglobin 29.1 pg (27.0-31.2); Mean Corpuscular Volume 91.2 fl (81-99); Nucleated Red Blood Cells % 0 %; Platelet Count 144 K/mm3 (142-424); Red Blood Count 4.22 M/mm3 (4.20-5.40); Red Cell Distribution Width-SD 43.8 fL; White Blood Count 4.8 K/mm3 (4.8-10.8)
--- OUTSIDE RECORDS SUMMARY | 2025-03-16 15:46 | XMS_ITS | Encounter Summary ---
Author Organization [place] [address] Care Team Providers Care Biometrics Technician Name Role Phone Aminah De Leon MD Primary Care Provider [phone] Rony Tena MD Unavailable Unavailable Encounter Details Date Type Department Care Team (Late st Contact Info) Description 01/16/2025 Results Follow-Up [facility] [address] [place] [address] Aminah De Leon MD [address] [place] [address] CBC WITH DIFF, COMPREHENSIVE METABOLIC PANEL, HEMOGLOBIN A1C, Additional followed-up results: 3 Social History Tobacco Use Types Packs/Day Years Used Date Smoking Tobacco: Never Passive Smoke Exposure: Yes Smokeless Tobacco: Never Alcohol Use Standard Drinks/Week Comments No 0 (1 standard drink = 0.6 oz pur e alcohol) [facility] Utilities Answer Date Recorded [...] Date Recorded PHQ-2 Total Score 0 07/15/2024 [facility] [place] of Occupat ional Health - Occupational Stress [...] things needed for daily living? No 07/15/2024 [facility] IP Transportation Answer D ate Recorded [...] Agnes Gracia RMA documented in this encounter Plan of Treatment Upcoming Encounters Date Type Department Care Team (Late st Contact Info) Description 05/30/2025 10:30 AM EST Office Visit SEP Neurology [facility] [address] [place] [phone] Uvaldo Donahue MD [address] [place] [address] [address] 07/18/2025 1:00 PM EST Office Visit SEP H&V [address] [address] Rony Hylton MD [address] [place] [address] [place] [address] 07/25/2025 9:00 AM EST Office Visit SEP [facility] [address] [place] [address] Aminah De Leon MD [address] [place] [address] 12/08/2025 10:00 AM EDT Appointment [facility] MED OFC VASCULAR [address] [facility] [address] [place] [id number] November, Eleni Puga CASTING ROOM HELPER [address] [place] [address] [address] [place] [address] 12/08/2025 11:00 AM EDT Office Visit SEP Vascular Surg Edg [address] [place] [address] NovemberEleni CASTING ROOM HELPER[address] [place] [address] documented as of this encounter Goals Goal [...] documented as of this encounter Care Teams Biometrics Technician Relationship Specialty Start Date End Date Aminah De Leon MD [address] [place] [address] PCP - General 06/16/09 Rony Tena MD [address] [place] [address] Surgery-Vascular Surgery 10/11/11 documented as of this encounter
--- OUTSIDE RECORDS SUMMARY | 2025-03-16 15:46 | XMS_ITS | Clinical Summary ---
Author Organization [facility] Address [address] [facility] [place] [address] Phone Care Team Providers Care Dinkey Motor Operator Name Role Phone Christina VALDEZ, Marlon Unavailable [phone] Conditions or Problems Problem Name Problem Code Onset Date Status Entry Date Provider Comment Standard Description Annotate LUMBAR RADICULOPATHY 351562430 (SNOMED CT) 07/28 Active 07/28 Suman Adames MD Lumbar radiculopathy Take Note of HYPERTENSION [id number] (SNOMED CT) 07/28 Active 07/28 Suman Adames MD Hypertensive disorder Take Note of DIABETES MELLITUS [id number] (SNOMED CT) 07/28 Active 07/28 Suman Adames MD Diabetes mellitus Medications Medication Instructions Start Date Stop Date Generic Name NDC Provider NEURONTIN 300 MG CAPS 1 po q day x 3 days; 1 po bid for 3 days; then 1 po tid as needed for nerve pain. 5 GABAPENTIN [id number] Suman Adames MD METFORMIN HCL ER [id number] [facility] 5 METFORMIN HCL TB24 [id number] Suman Adames MD ZOLOFT TABS [facility] 5 SERTRALINE HCL TABS [id number] Suman Adames MD DIOVAN TABS [facility] 5 VALSARTAN TABS [phone] Suman Adames MD Medications Administered No information available. Allergies, Adverse Reactions, Alerts Observed no known allergies at Results No information available. Plan of Care No information available. Procedures No information available. Vital Signs Date Name Value Unit Description BP Diastolic 80 mm[Hg] blood pressu re, diastolic BP Systolic 130 mm[Hg] blood pressur e, systolic Height 67 [in_us] height E&M Weight Measured 236 [lb_av] weight E& M Weight Measured 236 [lb_av] weight E& M Immunizations No information available. Advance Directives No information available.
--- OUTSIDE RECORDS SUMMARY | 2025-03-16 15:46 | XMS_ITS | Encounter Summary ---
Author Organization [place] [address] Care Team Providers Care Intensive Care Specialist Name Role Phone Aminah De Leon MD Primary Care Provider [phone] Rony Tena MD Unavailable Unavailable Encounter Details Date Type Department Care Team (Late st Contact Info) Description 02/25/2025 Orders Only [facility] [address] [place] [address] Sofia Delaney MA Iron deficiency anemia due to chronic blood loss (Primary Dx); Vitamin B12 deficiency Social History Tobacco Use Types Packs/Day Years Used Date Smoking Tobacco: Never Passive Smoke Exposure: Yes Smokeless Tobacco: Never Alcohol Use Standard Drinks/Week Comments No 0 (1 standard drink = 0.6 oz pur e alcohol) [facility] Utilities Answer Date Recorded In [...] Date Recorded PHQ-2 Total Score 0 07/15/2024 [facility] Occupat ional [facility] - Occupational Stress Questionnaire Answer Date Recorded [...] things needed for daily living? No 07/15/2024 [facility] IP Transportation Answer D ate Recorded [...] 10:30 AM EST Office Visit SEP Neurology [facility] [address] [place] [address] Uvaldo Donahue MD [address] [address] 07/18/2025 1:00 PM EST Office Visit [facility] [place] [address] [place] [address] Rony Hylton MD [address] [place] [address] [place] [address] 07/25/2025 9:00 AM EST Office Visit [facility] [address] [place] [address] Aminah De Leon MD [address] [place] [address] 12/08/2025 10:00 AM EDT Appointment [facility] VASCULAR 20 [facility] [address] [place] [address] NovemberEleni [employer] [address] [place] [address] 12/08/2025 11:00 AM EDT Office Visit SEP Vascular Surg Edg [address] [place] [address] NovemberEleni APRN [address] [place] [address] [address] [place] [address] documented as of this encounter [...] encounter Results * (ABNORMAL) COMPREHENSIVE METABOLIC PANEL (02/25/2025 10:03 AM EDT) Sodium 139 136 - 145 mmol/L 02/25/2025 10:30 AM [facility]T [facility] Potassium 4.4 3.5 - 5.0 mmol/L 02/25/2025 10:30 AM EDT [facility] Chloride 105 98 - 107 mmol/L 02/25/2025 10:30 AM EDT [facility] Total CO2 23 22 - 29 mmol/L 02/25/2025 10:30 AM T [facility] Anion Gap 11 7 - 16 mmol/L 02/25/2025 10:30 AM EDT [facility] Calcium 9.8 8.8 - 10.4 mg/dL 02/25/2025 10:30 AM EDT [facility] Glucose Lvl 113(H) 70 - 99 mg/dL 02/25/2025 10:30 AM EDT [facility] BUN 17 8 - 23 mg/dL 02/25/2025 10:30 AM EDT [facility] Creatinine 1.24 0.51 - 1.30 mg/dL 02/25/2025 10:30 AM EDT [facility] Albumin 4.4 3.2 - 4.6 gm/dL 02/25/2025 10:30 AM EDT [facility] Total Protein 6.9 6.4 - 8.3 gm/dL 02/25/2025 10:30 AM EDT [facility] Bili Total 0.7 0.2 - 1.3 mg/dL 02/25/2025 10:30 AM EDT [facility] ALT 11 <=41 U/L 02/25/2025 10:30 AM EDT [facility] AST 18 <=40 U/L 02/25/2025 10:30 AM EDT [facility] Alk Phos 63 36 - 123 U/L 02/25/2025 10:30 AM EDT [facility] eGFR (CKD-EPIcr 2020) 45(L) >=60 mL/min/1.7 3 m2 02/25/2025 10:30 AM EDT [facility] Comment:Estimated GFR was ca lculated using the CKD-EPIcr (2020) equation refit without race. The equation is recommended by the National Kidney Foundation - [place] [employer] Nephrology Task Force. Blood VENOUS BLOOD / Unknown Venipuncture / Unknown 02/25/2025 10:03 AM EDT 02/25/2025 10:06 AM EDT us Suhas Merino MD CHEMISTRY ORDERABLES Final Res ult [facility] [address] [place] [address] * (ABNORMAL) CBC WITH DIFF (02/25/2025 10:03 AM EDT) WBC 4.4 3.7 - 10.3 x10(3)/mcL 02/25/2025 10:09 AM EDT [facility] RBC 4.39 3.90 - 5.20 x10(6)/mcL 02/25/2025 10:09 AM EDT [facility] Hgb 12.6 11.2 - 15.7 g/dL 02/25/2025 10:09 AM EDT [facility] Hct 40.2 34.0 - 45.0 % 02/25/2025 10:09 AM EDT [facility] MCV 91.6 80.0 - 100.0 fL 02/25/2025 10:09 AM EDT [facility] MCH 28.7 26.0 - 34.0 pg 02/25/2025 10:09 AM EDT [facility] MCHC 31.3 30.7 - 35.5 g/dL 02/25/2025 10:[facility] RDW 12.8 <=14.9 % 02/25/2025 10:09 AM EDT [facility] Platelet 147(L) 155 - 369 x10(3)/mcL 02/25/2025 10:09 AM [facility] MPV 10.5 8.8 - 12.5 fL 02/25/2025 10:09 AM EDT [facility] Neut Percent 57.2 % 02/25/2025 10:09 AM EDT [facility] Comment:Neutrophils equals s egs plus bands Imm Gran% 0.2 % 02/25/2025 10:09 AM EDT [facility] Comment:Automated count of m etamyelocytes, myelocytes and promyelocytes. Lymph Percent 28.9 % 02/25/2025 10:09 AM EDT [facility] [place] Percent 8.4 % 02/25/2025 10:09 AM EDT [facility] Eos Percent 3.9 % 02/25/2025 10:09 AM EDT [facility] Baso Percent 1.4 % 02/25/2025 10:09 AM EDT [facility] Neut # 2.5 1.6 - 6.1 x10(3)/mcL 02/25/2025 10:09 AM EDT [facility] Comment:Neutrophils equals s egs plus bands IMMGRAN# 0.0 0.0 - 0.1 x10(3)/[facility] 02/25/2025 10:09 AM EDT [facility] Comment:Automated count of m etamyelocytes, myelocytes and promyelocytes. An absolute IG <0.1 is reported as 0.0. Lymph # 1.3 1.2 - 3.9 x10(3)/[facility] 02/25/2025 10:09 AM EDT [facility] [place] # 0.4 0.3 - 0.9 x10(3)/[facility] 02/25/2025 10:09 AM EDT [facility] Eos# 0.2 0.0 - 0.5 x10(3)/[facility] 02/25/2025 10:09 AM EDT [facility] Baso # 0.1 0.0 - 0.1 x10(3)/[facility] 02/25/2025 10:09 AM EDT [facility] Blood VENOUS BLOOD / Unknown Venipuncture / Unknown 02/25/2025 10:03 AM EDT 02/25/2025 10:06 AM EDT us Suhas Merino MD HEMATOLOGY ORDERABLES Final Re sult [facility] [address] [place] [address] documented in this encounter Visit [...] documented as of this encounter Care Teams Intensive Care Specialist Relationship Specialty Start Date End Date Aminah De Leon MD [address] [place] [address] PCP - General 06/16/09 Rony Tena MD [address] [place] [address] Surgery-Vascular Surgery 10/11/11 documented as of this encounter
--- OUTSIDE RECORDS SUMMARY | 2025-03-16 15:46 | XMS_ITS | Encounter Summary ---
Author Organization [place] [address] Care Team Providers Care Cotton Grower Name Role Phone Aminah De Leon MD Primary Care Provider [phone] Rony Tena MD Unavailable Unavailable Encounter Details Date Type Department Care Team (Late st Contact Info) Description 02/25/2025 Results Follow-Up Cancer Care Medical Oncology [place] [id number] Suhas Merino MD [address] [place] [address] IRON+TIBC, VITAMIN B12/ FOLIC ACID Social History Tobacco Use Types Packs/Day Years Used Date Smoking Tobacco: Never Passive Smoke Exposure: Yes Smokeless Tobacco: Never Alcohol Use Standard Drinks/Week Comments No 0 (1 standard drink = 0.6 oz pur e alcohol) [facility] Utilities Answer Date Recorded In the past [...] Date Recorded PHQ-2 Total Score 0 07/15/2024 [facility] Occupat ional Health - Occupational Stress [...] things needed for daily living? No 07/15/2024 [facility] IP Transportation Answer D ate Recorded [...] Assessment Author No 07/15/2024 9:14 AM Agnes Garcia RMA * Is the person blind or [...] 10:30 AM EST Office Visit SEP Neurology [facility] [address] [place] [address] Uvaldo Donahue MD [address] [address] 07/18/2025 1:00 PM EST Office Visit SEP H&[facility] [address] [address] Rony Hylton MD [address] [place] [address] [place] [address] 07/25/2025 9:00 AM EST [facility] [address] [place] [address] Aminah De Leon MD [address] [place] [address] 12/08/2025 10:00 AM EDT Appointment [facility] MED OFC VASCULAR 20 [facility] [address] [place] [id number] MayEleni JACQUARD LO[employer] WEAVER [address] [place] [address] [address] [place] [address] 12/08/2025 11:00 AM EDT Office Visit SEP Vascular Surg Edg 20 [facility] [address] [place] [address] MayEleni JACQUARD LO[address] WEAVER [address] [place] [address] [address] [place], [place] [id number] documented as of this encounter Goals Goal [...] documented as of this encounter Care Teams Cotton Grower Relationship Specialty Start [place] [address] [place] [address] PCP - General 06/16/09 Rony Tena MD [address] [place] [address] Surgery-Vascular Surgery 10/11/11 documented as of this encounter
--- OUTSIDE RECORDS SUMMARY | 2025-03-16 15:47 | XMS_ITS | Clinical Summary ---
Author Organization [facility] [place] [facility] Address [address] [place] [address] Phone Care Team Providers Care Stripper Black And White Name Role Phone Aminah De Leon MD Primary Care Provider [phone] Rony Tena MD Unavailable Unavailable Allergies Active Allergy Reactions Criticality Noted Date Comments Atorvastatin Myalgia Medium 09/15/2013 Medications CALCIUM CARBONATE/VITAMIN D3 (VITAMIN D-3 ORAL) Take 2,000 mg by mouth daily. Active aspirin 81 mg Oral Tablet, Delayed Release (E.C.)Indications:Athero sclerosis of mcgrath arteries of extremities with intermittent claudication, bilateral legs Take 1 Tab by mouth daily. 02/10/20 20 Active dorzolamide-timoloL (COSOPT) 22.3-6.8 mg/mL Opht Drops Place 1 Drop into both eyes 2 times daily. 09/14/19 21 Active acetaminophen 325 mg Oral Tab Take 2 Tabs by mouth every 4 hours as needed for Fever or Headaches. 02/14/20 21 Active latanoprost (XALATAN) 0.005 % Opht Drops Apply 1 Drop to eye nightly. Left nightly 05/16/20 21 Active brimonidine (ALPHAGAN) 0.2 % Opht Drops INSTILL 1 DROP INTO LEFT EYE EVERY 12 HOURS 12/11/19 22 Active Leg Brace [facility] MiscIndications:Right foot drop,Right peroneal mononeuropathy 1 Device by [facility].(Non-D rug; Combo Route) route daily. NEEDS AFO for R side 1 Each 09/18/19 24 Active Blood-Glucose Meter [facility] MiscIndications:Type 2 diabetes mellitus with diabetic polyneuropathy, without long-term current use of insulin ([facility]) 1 m by [facility].(Non-D rug; Combo Route) route daily. 1 Each 01/12/20 24 Active pediatric multivitamin (FLINTSTONES MULTIVITAMIN) Oral Tablet, ChewableIndications:Righ t peroneal mononeuropathy Take 1 Tablet by mouth 2 times daily. 03/03/20 24 Active carvediloL (COREG) 25 mg Oral TabletIndications:Essent ial hypertension,Takotsubo cardiomyopathy,Pure hypercholesterolemia Take 1 Tablet by mouth 2 times daily (with meals). 180 Tablet 10/05/19 25 Active losartan (COZAAR) 25 mg Oral Tablet Take 1 Tablet by mouth daily. 30 Tablet 10/05/19 25 Active FLUoxetine (PROZAC) 40 mg Oral CapsuleIndications:Mixed anxiety and depressive disorder Take 1 Capsule by mouth daily. 100 Capsule 3 01/13/20 25 Active gabapentin (NEURONTIN) 300 mg Oral CapsuleIndications:Type 2 diabetes mellitus with diabetic polyneuropathy, without long-term current use of insulin (HCC),Diabetes mellitus with peripheral circulatory disorder (HCC) Take 2 Capsules by mouth 2 times daily. 120 Capsule 5 01/26/20 25 Active rosuvastatin (CRESTOR) 20 mg Oral Tablet Take 1 Tablet by mouth nightly. 100 Tablet 3 01/13/20 25 Active clopidogreL (PLAVIX) 75 mg Oral TabletIndications:Athero sclerosis of mcgrath artery of both lower extremities with intermittent claudication,PAD (peripheral artery disease) Take 1 Tablet by mouth daily. 100 Tablet 3 01/13/20 25 Active metFORMIN (GLUCOPHAGE) 500 mg Oral TabletIndications:Type 2 diabetes mellitus with diabetic polyneuropathy, without long-term current use of insulin (HCC),Diabetes mellitus with peripheral circulatory disorder (HCC) 1 daily c supper 100 Tablet 3 01/13/20 25 Active Blood Sugar Diagnostic Misc Strip 1 Strip by Misc.(Non-D rug; Combo Route) route 2 times daily. 180 Strip 3 01/13/20 25 Active busPIRone (BUSPAR) 15 mg Oral TabletIndications:Mixed anxiety and depressive disorder TAKE 1/2 TO 1 TABLET TWICE DAILY NEEDED 120 Tablet 3 01/13/20 25 Active Active Problems Patient Care Coordination No te Formatting of this note migh t be different from the original. 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 Thrombocytopenia 03/26/2024 Falls frequently 03/12/2024 Syncope due to orthostatic hypotension Decrease in appetite 03/03/2024 [place] light chain disease 03/03/2024 Contusion of face, initial encounter 02/17/2024 Fall on same level from tripping 02/17/2024 Left foot drop 02/17/2024 Right peroneal mononeuropathy 09/18/2023 Assessment & Plan (01/12/2025 9:46 AM EDT): Much improvement Her foot drop and neuropathy are so much better Right foot drop 09/18/2023 Chronic obstructive pulmonary disease 06/17/2023 Lumbar pain 02/20/2021 Sciatica of right side 02/11/2021 ERI on CPAP 05/15/2020 Overview (05/15/2020): mod ERI with RDI of 17.5 cpap Empty sella 04/21/2018 Overview (05/15/2020): Partially empty sella per MRI 2018 Sensorineural hearing loss, bilateral 10/29/2017 Mixed conductive and sensori neural hearing loss of right ear with restricted hearing of left ear 10/29/2017 Pure hypercholesterolemia 06/13/2017 Takotsubo cardiomyopathy 04/20/2017 Overview (05/15/2020): Takotsubo Cardiomyopathy Resolved/asymptomatic Apr 2017 - s/p LHC-normal coronary arteries; LVEF 25% per [facility], echo May 2017 - echo - LVSF is normal Continue losartan and coreg Essential hypertension 09/12/2016 Assessment & Plan (01/12/2025 9:46 AM EDT): Doing ok Vitals: 01/12/25 0855 BP: (!) 142/86 Pulse: 60 Temp: 98.2 F (36.8 C) SpO2: 97% BP at home May need to raise the losartan to 50 mg Orders: CBC WITH DIFF; Future COMPREHENSIVE METABOLIC PANEL; Future Assessment & Plan (07/15/2024 9:34 AM EST): Orders: COMPREHENSIVE METABOLIC PANEL; Future CBC WITH DIFF; Future Type 2 diabetes mellitus wit h diabetic polyneuropathy, without long-term current use of insulin 09/12/2016 Assessment & Plan (01/12/2025 9:46 AM EDT): Well controlled Orders: MICROALBUMIN/CREATININE RATIO URINE; Future COMPREHENSIVE METABOLIC PANEL; Future HEMOGLOBIN A1C; Future LIPID SCREEN; Future THYROID STIMULATING HORMONE; Future gabapentin (NEURONTIN) 300 mg Oral Capsule; Take 2 Capsules by mouth 2 times daily. metFORMIN (GLUCOPHAGE) 500 mg Oral Tablet; 1 daily c supper Assessment & Plan (07/15/2024 9:34 AM EST): Orders: gabapentin (NEURONTIN) 300 mg Oral Capsule; Take 2 Capsules by mouth 2 times daily. THYROID STIMULATING HORMONE; Future LIPID SCREEN; Future HEMOGLOBIN A1C; Future COMPREHENSIVE METABOLIC PANEL; Future MICROALBUMIN/CREATININE RATIO URINE; Future Assessment & Plan (04/13/2024 11:39 AM EDT): Orders: gabapentin (NEURONTIN) 300 mg Oral Capsule; Take 2 Capsules by mouth 2 times daily. Atherosclerosis of mcgrath ar kayli of extremity with intermittent claudication 01/02/2016 Assessment & Plan (01/12/2025 9:46 AM EDT): Orders: clopidogreL (PLAVIX) 75 mg Oral Tablet; Take 1 Tablet by mouth daily. PAD (peripheral artery disease) 01/02/2016 Overview (05/15/2020): Asymptomatic currently 01/20/2012 - right femoral-AKpop Goretex bypass 10/18/2011 - Left SFA/pop mechanical thrombectomy and re-stent10/01/2011 - Left SFA/pop PTLA/stent Follows with Dr Tena -Vascular Surgery Cont clopidogrel, statin and asa Assessment & Plan (01/12/2025 9:46 AM EDT): Orders: clopidogreL (PLAVIX) 75 mg Oral Tablet; Take 1 Tablet by mouth daily. Mixed anxiety and depressive disorder 06/27/2015 Assessment & Plan (01/12/2025 9:46 AM EDT): Doing ok but coming off the remeron gained a lot of weight Orders: FLUoxetine (PROZAC) 40 mg Oral Capsule; Take 1 Capsule by mouth daily. busPIRone (BUSPAR) 15 mg Oral Tablet; TAKE 1/2 TO 1 TABLET TWICE DAILY NEEDED Cystocele with uterine prolapse 02/23/2015 Diabetes mellitus with peripheral circulatory di sorder 01/12/2013 Assessment & Plan (01/12/2025 9:46 AM EDT): Orders: MICROALBUMIN/CREATININE RATIO URINE; Future gabapentin (NEURONTIN) 300 mg Oral Capsule; Take 2 Capsules by mouth 2 times daily. metFORMIN (GLUCOPHAGE) 500 mg Oral Tablet; 1 daily c supper Assessment & Plan (07/15/2024 9:34 AM EST): Orders: gabapentin (NEURONTIN) 300 mg Oral Capsule; Take 2 Capsules by mouth 2 times daily. MICROALBUMIN/CREATININE RATIO URINE; Future Assessment & Plan (04/13/2024 11:39 AM EDT): Orders: gabapentin (NEURONTIN) 300 mg Oral Capsule; Take 2 Capsules by mouth 2 times daily. 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 02/03/2017 11/11/2024 PVD (peripheral vascular dis ease) with claudication 09/12/2011 10/15/2017 Hyperlipidemia 03/21/2011 06/13/2017 HTN (hypertension) 05/06/2010 7 Diabetes mellitus 05/06/2010 10/15/2017 Hemoptysis 05/15/2020 Encounters Date Type Department Care Team Description 02/25/2025 9:52 AM EDT - 02/25/2025 11:59 PM EDT Hospital Encounter [facility] [address] [place], [place] [id number] Suhas Merino MD Iron deficiency anemia due to chronic blood loss (Primary Dx); Vitamin B12 deficiency Discharge Disposition: Home or Self Care 02/25/2025 9:52 AM EDT - 02/25/2025 11:59 PM EDT Hospital Encounter [facility] [address] [place] [address] Iron deficiency anemia due to chronic blood loss; Vitamin B12 deficiency Discharge Disposition: Home or Self Care 02/25/2025 Results [facility] [place] [address] Suhas Merino MD IRON+TIBC, VITAMIN B12/ FOLIC ACID 02/25/2025 Orders Only [facility] [address] [place] [address] Sofia Delaney MA Iron deficiency anemia due to chronic blood loss (Primary Dx); Vitamin B12 deficiency 01/16/2025 Results Follow-Up [facility] [address] [place], [place] [id number] Aminah De Leon MD CBC WITH DIFF, COMPREHENSIVE METABOLIC PANEL, HEMOGLOBIN A1C, Additional followed-up results: 3 01/12/2025 9:00 AM EDT Office Visit [facility] [address] [place] [address] Aminah De Leon MD Medicare annual wellness visit, subsequent (Primary Dx); Type 2 diabetes mellitus with diabetic polyneuropathy, without long-term current use of insulin (HCC); Diabetes mellitus with peripheral circulatory disorder (HCC); Essential hypertension; Screening for disorder of blood and blood-forming organs; Screening for metabolic disorder; Screening for endocrine disorder; Screening, lipid; Screening for thyroid disorder; Mixed anxiety and depressive disorder; Atherosclerosis of mcgrath artery of both lower extremities with intermittent claudication; PAD (peripheral artery disease); Right peroneal mononeuropathy 01/04/2025 Telephone [facility] [address] [facility] [address] [place] [address] Sofia Delaney MA from Last 3 Months Immunizations Immunization Administration Dates Next Due Hepatitis B (Recombinant), Adjuvanted 04/26/2019 ,10/21/2018 Influenza High Dose 04/13/2024, 9,04/21/2018,04/29 Influenza Patient Reported 04/14/2012 Influenza Vaccine, Unspecifi ed Formulation 05/12/2014 Moderna SARS-CoV-2 Booster V accine 18+ Yrs (Light Blue Border) 05/22/2021 Moderna SARS-CoV-2 Vaccine 1 2+ Yrs (Light blue border) 08/16/2020,07/19/2020 Pneumococcal Conjugate Vacci ne 13 Valent 03/16/2015 Pneumococcal Polysaccharide 23 Valent 09/15/2013 Quadrivalent Influenza High Dose 05/13/2022,11/0 03/2021,05/15/2020 Td, Unspecified Formulation 09/11/1996 Tdap 04/02/2012 Surgical History Surgery Date Site/Laterality Comments DILATION AND CURETTAGE OF UTERUS polyp ANGIOPLASTY 10/11/2011 LEFT SFA-popliteal angioplasty and stent ANGIOPLASTY 10/18/2011 Left LEFT SFA-pop mechanical thrombectomy, PTLA/stent BYPASS GRAFT 01/20/2012 Right Right fem-AK pop Goretex bypass BRONCHOSCOPY 09/22/2019 N/A BRONCHOSCOPY with bronchoalveolar lavage ; Surgeon: Jared Law MD; Location: [facility]; Service: Endoscopy CARDIAC CATHETERIZATION 07/14/2016 - 07/13/2017 no blockages COLONOSCOPY 03/14/2016 - 04/12/2016 q10y CATARACT REMOVAL 10/12/2020 Right RIGHT EYE CATARACT EXTRACTION WITH PHACOEMULSIFICATION AND INTRAOCULAR LENS; Surgeon: Thierry Jaramillo MD; Location: [facility]; Service: Ophthalmology Medical devices from this surgery are in the Medical Devices section. CATARACT REMOVAL 10/26/2020 Left LEFT EYE CATARACT EXTRACTION WITH PHACOEMULSIFICATION AND INTRAOCULAR LENS; Surgeon: Thierry Jaramillo MD; Location: [facility]; Service: Ophthalmology Medical devices from this surgery are in the Medical Devices section. 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/2017 Cardiomyopathy (HCC) 04/20/2017 Empty sella 04/21/2018 patient unsure a bout this diagnosis Peripheral neuropathy ERI on CPAP Diabetes mellitus with perip heral circulatory disorder (HCC) 01/12/2013 Atherosclerosis of mcgrath ar kayli of extremity with intermittent claudication 01/02/2016 PAD (peripheral artery disease) 01/02/2016 stents in lt leg and graft in rt leg Anxiety History of pneumonia Glaucoma of both eyes Type 2 diabetes mellitus (HCC) Family History Medical History Relation Name Comments Colon Cancer Brother 1 Palmer metastatic to s tomach and liver Thyroid Cancer Daughter Camelia dx. possibly 30s Thyroid Disease Daughter Camelia Cancer Father bone Diabetes Mother Heart Disease Mother Thyroid Disease Niece 2 Desiree Goiter Breast Cancer Sister 1 Latoya dx. late 30slu mpectomy, chemo, radiation Colon Polyps Sister 1 Latoya >20 colon polyp s found on one colonoscopy, additional colon polyps found on other c-scopes Diabetes Sister 1 Latoya Breast Cancer Sister 2 Mary Jo dx. late 40s, early 50smastectomy Colon Polyps Sister 4 Imelda pre-cancerous p olyp Anesth Problems Neg Hx Clotting Disorder Neg Hx Relation Name Status Comments Brother 1 Palmer Alive Brother 2 Riley Alive Brother 3 Marcos Alive Daughter Camelia Alive Father (Age 91) Maternal Aunt Malena Maternal Grandfather (Age 80s) Maternal Grandmother gigiMay didier eisenberg Mother (Age 68) d, CHF Nephew 1 Alive Nephew 2 Alive Nephew 3 Alive d. NC Nephew 4 Bill Alive Nephew 5 Eugenio Alive Nephew 6 Alive Nephew 7 Alive Nephew 8 Alive Nephew 9 Alive Niece 1 Makenzie Alive Niece 2 Desiree Alive Niece 3 (Age 38) hemochroma tosisd. substance Niece 4 Alive Niece 5 Alive Niece 6 Alive Niece 7 Alive Other 1 Alive Other 2 Christa Alive CDH1 + Other 3 Other 4 d. >50 Paternal Aunt d. >50 Paternal Grandfather Paternal Grandmother perry eisenberg Paternal Uncle 1 d. >50 Paternal Uncle 2 d.>50 Paternal Uncle 3 d. >50 Sister 1 Latoya Alive Sister 2 Mary Jo (Age 72) Sister 3 (Age 81) Sister 4 Imelda Alive Son Alive Social History Tobacco Use Types Packs/Day Years Used Date Smoking Tobacco: Never Passive Smoke Exposure: Yes Smokeless Tobacco: Never Tobacco Cessation:Counseling Given: Not Answered Alcohol Use Standard Drinks/Week Comments No 0 (1 standard drink = 0.6 oz pur e alcohol) [facility] Utilities Answer Date Recorded In the past 12 months has e [employer], gas, oil, or water [employer] threatened to shut off services in your home? No 02/17/2024 Overall Financial Resource Strain (CARDIA) Answe r Date Recorded How hard is it for you to pa y for the very basics like food, housing, medical care, and heating? Not hard at all 07/15/2024 PHQ-2 Answer Date Recorded PHQ-2 Total Score 0 07/15/2024 [facility] [place] of Occupat ional Health - Occupational Stress [...] things needed for daily living? No 07/15/2024 [facility] IP Transportation Answer D ate Recorded [...] file Not on file Not on file Obstetrics History Para Term AB IAB SAB Ectopic Multiple Livin g Live Births 2 2 2 2 2 Date Outcome GA Total Labor Labor/2nd/3rd Weight Sex Type Anes PTL Sumaya A1 A5 Name Clin Term Vag-S pont Living Term Vag-S pont Living Last Filed Vital Signs Vital Sign Reading [...] Mass Index 30.51 02/25/2025 10:32 AM EDT Plan of Treatment Upcoming Encounters Date Type Department Care Team (Late st Contact Info) Description 05/30/2025 10:30 AM EST Office Visit [facility] [address] [place] [address] Uvaldo Donahue MD [address] [place] [address] 07/18/2025 1:00 PM EST Office [facility] [address] [place] [address] Rony Hylton MD [address] [place] [address] [place] [address] 07/25/2025 9:00 AM EST Office Visit [facility] [address] [place], [place] [id number] Aminah De Leon MD [address] [place] [address] 12/08/2025 10:00 AM EDT Appointment [facility] [address] [facility] [address] [place] [address] Eleni Edwards APRN [address] [place] [address] DR [address] [place] [address] 12/08/2025 11:00 AM EDT Office Visit [facility] [address] [facility] [address] [place] [address] Eleni Edwards APRN [address] [place] [address] DR HERRERA [address] [place] [id number] Health Maintenance Due Date Last Done Comments RSV or 60+ (1 - 1-dose 75+ series) 2023 COVID-19 Vaccine ( season) 2025 05/22/2021, 08/16/2020, 07/19/2020 Influenza Vaccine (#1) 2025 , 05/27/2023, 05/13/2022, Additional history exists DTaP/TDaP/Td (2 - Td or Tdap) 07/15/2025 04/02/2012, 09/11/1996 Postponed from 04/02/2022 (Insurance/Financial) Hemoglobin A1c 07/15/2025 01/12/2025, 010 08/2024, 02/20/2024, Additional history exists Zoster (1 of 2) 07/15/2025 Postponed fr om 1998 (Insurance/Financial) Kidney Health: uACR 01/12/2026 01/12/2025, 07/15/2024, 12/12/2023, Additional history exists Lipids 01/12/2026 01/12/2025, 0 08/2024, 12/12/2023, Additional history exists Wellness Exam Medicare 01/13/2026 01/12/2025 Kidney Health: eGFR 02/25/2026 02/25/2025, 01/12/2025, 08/20/2024, Additional history exists Diabetic Eye Exam 08/18/2026 08/18/2024, , 05/02/2023, Additional history exists Colonoscopy 04/27/2029 04/28/2024, 03/20/2016 Pneumococcal Vaccine 50+ Completed 03/16/2015, 11/2013 Hepatitis C Screening Completed 09/12/2016 Bone Density Screening Completed 11/10/2017 Hepatitis B Vaccine Completed 04/26/2019, 9 Meningococcal B Vaccine Aged Out No l onger eligible based on patient's age to complete this topic Goals Goal Patient Goal Type Associated Problems [...] Result Component 5.9( 10:01 AM EDT) No MallikaJanel GARRISONCamila [employer] Devices Implanted Type Area Plasterer Spot Device Identifier Shelf Expiration Date Model / Serial / Lot Stents In Lt Leg Graft Dialysis Non-Ringed Propaten 6mm X 40mm - [id number] Implanted:Qty: 1 on 01/20/2012 by Rony Tena MD at [facility] 08/05/2015 [id number] / / [id number] Lens +16d 6x13mm Arcysof Iq Ultrasert Au00t0 Pc 1-Pc Basell - [id number] Implanted:Qty: 1 on 10/12/2020 by Thierry Jaramillo MD at [facility] Right: Eye [facility] [id number] 04/25/2023 AU00T0.160 / [id number] / Lens +14.5d 6x13mm Arcysof Iq Ultrasert Au00t0 Pc 1-Pc - [id number] Implanted:Qty: 1 on 10/26/2020 by Thierry Jaramillo MD at [facility] Left: Eye [facility] [id number] 05/13/2022 AU00T0 .145 / [id number] / Procedures Procedure Name Priority Date/Time Associated Diagnosis [...] to chronic blood loss Vitamin B12 deficiency MICROALBUMIN/CREATINI NE RATIO URINE Routine 01/12/2025 12:57 PM EDT Type 2 diabetes mellitus with diabetic polyneuropathy, without long-term current use of insulin (HCC) Diabetes mellitus with peripheral circulatory disorder (HCC) THYROID STIMULATING HORMONE Routine 01/12/2025 10:01 AM EDT Type 2 diabetes mellitus with diabetic polyneuropathy, without long-term current use of insulin (HCC) Screening for endocrine disorder Screening for thyroid disorder LIPID SCREEN Routine 01/12/2025 10:01 AM EDT Type 2 diabetes mellitus with diabetic polyneuropathy, without long-term current use of insulin (HCC) Screening, lipid HEMOGLOBIN A1C Routine 01/12/2025 10:01 AM EDT Type 2 diabetes mellitus with diabetic polyneuropathy, without long-term current use of insulin (HCC) Screening for endocrine disorder COMPREHENSIVE METABOLIC PANEL Routine 01/12/2025 10:01 AM EDT Type 2 diabetes mellitus with diabetic polyneuropathy, without long-term current use of insulin (HCC) Essential hypertension Screening for metabolic disorder CBC WITH DIFF Routine 01/12/2025 10:01 AM EDT Essential hypertension Screening for disorder of blood and blood-forming organs HM DIABETES EYE EXAM Routine 08/18/2024 1:17 PM EST COLONOSCOPY Routine 04/28/2024 10:18 AM EDT Abnormal weight loss Encounter for current senior living use of antiplatelet drug Family history of colon cancer Normocytic anemia DX BONE DENSITY AXIAL SKELETON Routine 11/10/2017 10:51 AM EDT Encounter for Medicare annual wellness exam Menopause HCV ANTIBODY SCREEN W/ REFLEX Routine 09/12/2016 9:21 AM EST Need for hepatitis C screening test from Last 3 Months or Most Recently Relevant to Health Maintenance Results * IRON+TIBC (02/25/2025 10:03 AM EDT) Iron 70 30 - 160 mcg/dL 02/25/2025 5:40 PM EDT [facility] Transferrin 241 200 - 360 mg/dL 02/25/2025 5:40 PM EDT [facility] Transferrin Saturation 21 20 - 50 % 02/25/2025 5:40 PM EDT [facility] TIBC 337 250 - 400 mcg/dL 02/25/2025 5:40 PM EDT [facility] Blood VENOUS BLOOD / Unknown Venipuncture / Unknown 02/25/2025 10:03 AM EDT 02/25/2025 10:06 AM EDT Suhas Merino MD CHEMISTRY ORDERABLES Final Res ult Performing Organization Address [facility] Phone Number [facility], [address] , [place] [address] * VITAMIN B12/ FOLIC ACID (02/25/2025 10:03 AM EDT) Vitamin B12 1,216 232 - 1,245 pg/mL 02/25/2025 5:09 PM EDT [facility] Folate >16.00 >=4.80 ng/mL 02/25/2025 5:09 PM EDT [facility] Blood VENOUS BLOOD / Unknown Venipuncture / Unknown 02/25/2025 10:03 AM EDT 02/25/2025 10:06 AM EDT Narrative [facility] - 02/25/2025 5:09 PM EDT Ingestion of cuco doses of biotin (>5 mg/day) taken within 8 hours of drawing blood sample can interfere with this immunoassay test. Suhas Merino MD CHEMISTRY ORDERABLES Final Res ult Performing Organization Address [facility] Co de Phone Number [facility], [address] , [place] [address] * (ABNORMAL) CBC WITH DIFF (02/25/2025 10:03 AM EDT) Only the most recent of2 resultswithin the time period is included. WBC 4.4 3.7 - 10.3 x10(3)/mcL 02/25/2025 10:[facility] RBC 4.39 3.90 - 5.20 x10(6)/mcL 02/25/2025 10:09 AM [facility] Hgb 12.6 11.2 - 15.7 g/dL 02/25/2025 10:09 AM [facility] Hct 40.2 34.0 - 45.0 % 02/25/2025 10:09 AM [facility] MCV 91.6 80.0 - 100.0 fL 02/25/2025 10:09 AM [facility] MCH 28.7 26.0 - 34.0 pg 02/25/2025 10:09 AM EDT [facility] MCHC 31.3 30.7 - 35.5 g/dL 02/25/2025 10:09 AM [facility] RDW 12.8 <=14.9 % 02/25/2025 10:09 AM [facility] Platelet 147(L) 155 - 369 x10(3)/mcL 02/25/2025 10:09 AM [facility] MPV 10.5 8.8 - 12.5 fL 02/25/2025 10:09 AM EDT [facility] Neut Percent 57.2 % 02/25/2025 10:09 AM T [facility] Comment:Neutrophils equals s egs plus bands Imm Gran% 0.2 % 02/25/2025 10:09 AM [facility] Comment:Automated count of m etamyelocytes, myelocytes and promyelocytes. Lymph Percent 28.9 % 02/25/2025 10:09 AM EDT [facility] Iroquois Percent 8.4 % 02/25/2025 10:09 AM EDT [facility] Eos Percent 3.9 % 02/25/2025 10:09 AM EDT [facility] Baso Percent 1.4 % 02/25/2025 10:09 AM EDT [facility] Neut # 2.5 1.6 - 6.1 x10(3)/[facility] 02/25/2025 10:09 AM EDT [facility] Comment:Neutrophils equals s egs plus bands IMMGRAN# 0.0 0.0 - 0.1 x10(3)/[facility] 02/25/2025 10:09 AM EDT [facility] Comment:Automated count of m etamyelocytes, myelocytes and promyelocytes. An absolute IG <0.1 is reported as 0.0. Lymph # 1.3 1.2 - 3.9 x10(3)/[facility] 02/25/2025 10:09 AM EDT [facility] Iroquois # 0.4 0.3 - 0.9 x10(3)/[facility] 02/25/2025 10:09 AM EDT [facility] Eos# 0.2 0.0 - 0.5 x10(3)/[facility] 02/25/2025 10:09 AM EDT [facility] Baso # 0.1 0.0 - 0.1 x10(3)/[facility] 02/25/2025 10:09 AM EDT [facility] Blood VENOUS BLOOD / Unknown Venipuncture / Unknown 02/25/2025 10:03 AM EDT 02/25/2025 10:06 AM EDT us Suhas Merino MD HEMATOLOGY ORDERABLES Final Re sult [facility] [address] [place] [address] * FERRITIN (02/25/2025 10:03 AM EDT) Pathologist [facility] Ferritin 116 30 - 150 ng/mL 02/25/2025 5:40 PM EDT [employer] [employer] Comment:The lower threshold of 30 is not [...] AM EDT 02/25/2025 10:06 AM EDT Narrative [email or web address] - 02/25/2025 5:40 PM EDT Ingestion of ccuo doses of biotin (>5 mg/day) taken within 8 hours of drawing blood sample can interfere with this immunoassay test. us Suhas Merino MD CHEMISTRY ORDERABLES Final Res ult [email or web address] , [address] [place] [id number] * (ABNORMAL) COMPREHENSIVE METABOLIC PANEL (02/25/2025 10:03 AM EDT) Only the most recent of2 resultswithin the time period is included. Sodium 139 136 - 145 mmol/L 02/25/2025 10:30 AM EDT [facility] Potassium 4.4 3.5 - 5.0 mmol/L 02/25/2025 10:30 AM EDT [facility] Chloride 105 98 - 107 mmol/L 02/25/2025 10:30 AM EDT [facility] Total CO2 23 22 - 29 mmol/L 02/25/2025 10:30 AM EDT [facility] Anion Gap 11 7 - 16 mmol/L 02/25/2025 10:30 AM EDT [facility] Calcium 9.8 8.8 - 10.4 mg/dL 02/25/2025 10:30 AM EDT [facility] Glucose Lvl 113(H) 70 - 99 mg/dL 02/25/2025 10:30 AM EDT [facility] BUN 17 8 - 23 mg/dL 02/25/2025 10:30 AM EDT [facility] Creatinine 1.24 0.51 - 1.30 mg/dL 02/25/2025 10:30 AM EDT [facility] Albumin 4.4 3.2 - 4.6 gm/dL 02/25/2025 10:30 AM EDT [facility] Total Protein 6.9 6.4 - 8.3 gm/dL 02/25/2025 10:30 AM EDT [facility] Bili Total 0.7 0.2 - 1.3 mg/dL 02/25/2025 10:30 AM EDT [facility] ALT 11 <=41 U/L 02/25/2025 10:30 AM EDT [facility] AST 18 <=40 U/L 02/25/2025 10:30 AM EDT [facility] Alk Phos 63 36 - 123 U/L 02/25/2025 10:30 AM EDT [facility] eGFR (CKD-EPIcr 2020) 45(L) >=60 mL/min/1.7 3 m2 02/25/2025 10:30 AM EDT [facility] Comment:Estimated GFR was ca lculated using the CKD-EPIcr (2020) equation refit without race. The equation is recommended by the National Kidney Foundation - [place] Society of Nephrology Task Force. Blood VENOUS BLOOD / Unknown Venipuncture / Unknown 02/25/2025 10:03 AM EDT 02/25/2025 10:06 AM EDT us Suhas Merino MD CHEMISTRY ORDERABLES Final Res ult [facility] [address] [place] [address] * (ABNORMAL) MICROALBUMIN/CREATININE RATIO URINE (01/12/2025 12:57 PM EDT) Urine Microalb 114.0 mg/L 01/12/2025 8:40 PM EDT [facility] Urine Creatinine 60.1 mg/dL 01/12/2025 8:40 PM EDT [facility] Ur Microalb/Creat 190(H) 0 - 30 mg/g 01/12/2025 8:40 PM EDT [facility] Urine STRUCTURE OF URINARY TRACT PROPER / Unknown 01/12/2025 12:57 PM EDT 01/12/2025 12:57 PM EDT Aminah De Leon MD URINE ORDERABLES Final Result Performing Organization Address [facility]/ZIP Co de Phone Number [facility], [address] , [address] [place] [phone] [facility] [address] [place], [place] [id number] * THYROID STIMULATING HORMONE (01/12/2025 10:01 AM EDT) TSH 1.970 0.270 - 4.200 mcIU/mL 01/12/2025 12:17 PM EDT [facility] Blood VENOUS BLOOD / Unknown Venipuncture / Unknown 01/12/2025 10:01 AM EDT 01/12/2025 10:01 AM EDT Narrative [facility] - 01/12/2025 12:17 PM EDT Ingestion of cuco doses of biotin (>5 mg/day) taken within 8 hours of drawing blood sample can interfere with this immunoassay test. Aminah De Leon MD CHEMISTRY ORDERABLES Final Resul t Performing Organization Address [facility] Co de Phone Number [facility] [address] [place] [address] , [address] [place] [id number] * (ABNORMAL) HEMOGLOBIN A1C (01/12/2025 10:01 AM EDT) Hgb A1C 5.9(H) 4.2 - 5.6 % 01/12/2025 12:05 PM EDT [facility] Est. Avg Glucose 123 mg/dL 01/12/2025 12:05 PM EDT [facility] Blood VENOUS BLOOD / Unknown Venipuncture / Unknown 01/12/2025 10:01 AM EDT 01/12/2025 10:01 AM EDT Narrative [facility] - 01/12/2025 12:05 PM EDT REFERENCE RANGE: Normal: 4.0-5.6% Pre-diabetes: 5.7-6.4% Provisional diagnosis of diabetes: >6.4% Hgb F>10% and anything which shortens red cell survival, such as hemolytic anemia, or unstable hemoglobin variants such as HbSS, HbSC, or HbCC, will lower the HbA1c value associated with a given level of glycemic control. us Aminah De Leon MD CHEMISTRY ORDERABLES Final Resul t [email or web address] [address] [facility] , [place] [address] * LIPID SCREEN (01/12/2025 10:01 AM EDT) Cholesterol 109 <200 mg/dL 01/12/2025 12:17 PM EDT [email or web address] Comment: < 200 Desirable 200 - 239 Borderline High >= 240 High Triglyceride 100 <150 mg/dL 01/12/2025 12:17 PM EDT [email or web address] Comment: < 150 Normal 150 - 199 Borderline High 200 - 499 High >= 500 Very High HDL 60 >=40 mg/dL 01/12/2025 12:17 PM EDT [email or web address] Comment: > 60 Optimal 40 - 60 Acceptable < 40 Low LDL Calculated 30 <100 mg/dL 01/12/2025 12:17 PM EDT [email or web address] Comment: < 100 Optimal 100 - 129 Near or above optimal 130 - 159 Borderline High 160 - 189 High >= 190 Very High The National Institutes of Health (NIH) equation is used for all lipid panels that report calculated LDL (LDL-C). Non-HDL-C Calculated 49 <=129 mg/dL 01/12/2025 12:17 PM EDT [email or web address] Comment: <130 Desirable 130-159 Above Desirable 160-189 Borderline High 190-219 High >= 220 Very High Fasting Specimen? Yes None 025 12:17 PM EDT [email or web address] Blood VENOUS BLOOD / Unknown Venipuncture / Unknown 01/12/2025 10:01 AM EDT 01/12/2025 10:01 AM EDT Aminah De Leon MD CHEMISTRY ORDERABLES Final Resul t [facility] [address] [place] [address] , [place] [address] * DIABETES EYE EXAM (08/18/2024 1:17 PM EST) Left Diabetic Retinopathy Not Present Not Present Present/Not Present SEP OFFICE Right Diabetic Retinopathy Not Present Not Present Present/Not Present SEP OFFICE Historical Provider HEALTH MAINTENANCE Edited Re sult - Final SEP OFFICE * COLONOSCOPY (04/28/2024 10:18 AM EDT) Anatomical Region Laterality Modality Endoscopy Narrative 04/28/2024 10:18 AM EDT Table formatting from the original result was not included. Findings One 3 mm sessile and benign-appearing polyp in the ascending colon; no bleeding was identified; performed cold forceps biopsy with complete removal One 6 mm sessile and benign-appearing polyp in the transverse colon; no bleeding was identified; performed cold snare with complete en bloc removal and retrieved specimen Internal small hemorrhoids observed during retroflexion; no bleeding was identified Recommendation Await pathology results Repeat colonoscopy in 5 years, due: 04/27/2029 Follow up with PCP Resume plavix in 2 days Pre-Procedure Diagnosis / Indication Normocytic anemia Abnormal weight loss Family history of colon cancer (brother) Encounter for current senior living use of antiplatelet drug Post-Procedure Diagnosis Colon polyps Staff Staff Role HERMES Min CRNA, MD Performing Provider Ted Reid MD Anesthesiologist Uvaldo Smith RN Adolescent Specialist Francisca Betancourt RN Endoscopy Nurse Medications See Anesthesia Record. Preprocedure A history and physical has been performed, and patient medication allergies have been reviewed. The patient's tolerance of previous anesthesia has been reviewed. The risks and benefits of the procedure and the sedation options and risks were discussed with the patient. All questions were answered and informed consent obtained. ASA 3 - Patient with severe systemic disease Details of the Procedure The patient underwent monitored anesthesia care, which was administered by an anesthesia professional. The patient's blood pressure, heart rate, level of consciousness, oxygen, respirations, ECG and ETCO2 were monitored throughout the procedure. A digital rectal exam was performed. The scope was introduced through the anus and advanced to the cecum. Retroflexion was performed in the rectum. Bowel prep was adequate. The patient's estimated blood loss was minimal (<5 mL). The procedure was not difficult. The patient tolerated the procedure well. There were no apparent adverse events. Patient provided education and educated on specific discharge instructions. Patient educated on medications given during the procedure and new medications for discharge. Patient verbalizes understanding of discharge education. Patient stable and awaiting transport for discharge. Events Procedure Events Event Event Time ENDO SCOPE IN TIME 04/28/2024 9:46 AM ENDO SCOPE OUT TIME 04/28/2024 9:51 AM ENDO SCOPE IN TIME 04/28/2024 9:56 AM ENDO CECUM REACHED 04/28/2024 10:03 AM ENDO SCOPE OUT TIME 04/28/2024 10:15 AM Specimens ID Type Source Tests Collected by Time 1 : Duodenal biopsy Tissue Small Intestine, Duodenum PATHOLOGY TISSUE REQUEST Pedro Pablo Werner MD 04/28/2024 0948 2 : gastric biopsy Tissue Gastric PATHOLOGY TISSUE REQUEST Pedro Pablo Werner MD 04/28/2024 0950 3 : Ascending colon polypectomy via biopsy Tissue Large Intestine, Right/Ascending Colon PATHOLOGY TISSUE REQUEST Pedro Pablo Werner MD 04/28/2024 1007 4 : Transverse colon polypectomy via cold snare Tissue Large Intestine, Transverse Colon PATHOLOGY TISSUE REQUEST Pedro Pablo Werner MD 04/28/2024 1008 Anesthesia Event Time In Patient In - Proc. Room 09:36 AM us Pedro Pablo Werner MD ENDOSCOPY PROCEDURE ORDERAB LES Final Result * DX BONE DENSITY AXIAL SKELETON (11/10/2017 10:51 AM EDT) Anatomical Region Laterality Modality Dexa Scan 11/12/2017 Narrative 11/20/2017 1:31 PM EDT Indication: The patient is a female age 65 or older who requires a bone density assessment. Study was performed on Horizon [employer]PE[employer] 5. Bone Density: Region BMD T-score Z-score Femoral Neck (Left) 0.838 -0.1 1.7 Total Hip (Left) 1.123 1.5 3.0 Femoral Neck (Right) 0.827 -0.2 1.6 Total Hip (Right) 1.184 2.0 3.4 1/3 Radius (Left) 0.727 0.6 2.6 World Health Organization criteria for BMD interpretation classify patients as: Normal (T-score at or above -1.0), Low Bone Density (T-score between -1.0 and -2.5), or Osteoporotic (T-score at or below -2.5). T Scores are reported in Postmenopausal women and in men age 50 and older. Z-scores are reported in females prior to menopause and in males younger than age 50. 10-year Fracture Risk: FRAX not reported because: All T-scores for Spine Total, Hip Total, Femoral Neck at or above -1.0 Clinical Information Provided by Patient: Has used or is currently using the following medications: Vitamin D, Diuretic Has had or currently has the following medical conditions: Diabetes Mellitus, Back pain, Vitamin D Insufficiency, Depression Patient maximum height was 67 Menopause Age: 53 Patient is postmenopausal Interpretation: Bone mineral density is in the normal range. A minimum of two years may be required between bone density studies due to inherent testing precision limitations. Intervals between BMD testing should be determined according to each patient's clinical status. The spine portion of the study is omitted due to hypertrophic change. Reported by: Arianna Gleason PA-C, CCD on 11/18/2017 1:01:00 PM. Aminah De Leon MD IMG DEXA ORDERABLES Final Result * HEPATITIS C ANTIBODY - SCREENING (09/12/2016 9:21 AM EST) Hep C Ab Negative Negative [facility] Blood specimen (specimen) 09/12/2016 9:21 AM EST 09/12/2016 2:49 PM EST Aminah De Leon MD HEMATOLOGY ORDERABLES Final Resu lt [facility] [address] [place] [address] from Last 3 Months or Most Recently Relevant to Health Maintenance Insurance MEDICARE [place] PART A [place] B MEDICARE SUPP[place]MENT [place]ARE [place] MEDICARE [place]PP[place] MEDICARE [place] PART A [place] B MEDICARE SU[place] MEDICARE [place] MEDIC[place] SU[place]LEMENT Member Subscriber Plan / Payer (Ef fective 2016-Present) Name:Lin Moya Relation to Subscriber:Self Name:Lin Moya Payer ID:[id number] (NAIC) Group ID:[id number] Type:Not on file Address: [address] MEDICARE [place] PART A AND B MEDICARE SUPPLEMENT Advance Directives For more information, please contact: [phone] * Full Code (Latest Code Status on File) Date Activated Date Inactivated Comments 02/17/2024 8:52 AM 02/19/2024 9:35 PM * Full Code Date Activated Date Inactivated Comments 04/21/2017 10:43 AM 04/22/2017 4:42 PM Care Teams Stripper Black And White Relationship Specialty Start Date End Date Aminah De Leon MD [address] [place] [address] PCP - General 06/16/09 Rony Tena MD [address] [place] [address] Surgery-Vascular Surgery 10/11/11
--- OUTSIDE RECORDS SUMMARY | 2025-03-16 15:47 | XMS_ITS | Encounter Summary ---
Author Organization [place] [address] Care Team Providers Care Plant Floor Automation Manager Name Role Phone Aminah De Leon MD Primary Care Provider [phone] Rony Tean MD Unavailable Unavailable Ursula Hernandez RN Unavailable Rupinder eric Encounter Details Date Type Department Care Team (Late st Contact Info) Description 03/20/2016 Orders Only SEP Gastro [facility] [address] [place] [address] Connor Isaacs MD Social History Tobacco Use Types Packs/Day Years Used Date Smoking Tobacco: Never Smokeless Tobacco: Never Alcohol Use Standard Drinks/Week Comments No 0 (1 standard drink = 0.6 oz pur e alcohol) Comments No Sex and Gender Information Value Date Recorded Sex Assigned at Not on file Legal Sex Female 12:47 PM EDT Gender Identity Not on file Sexual Orientation Not on file documented as of this encounter Plan of Treatment Upcoming Encounters Date Type Department Care Team (Late st Contact Info) Description 05/30/2025 10:30 AM EST Office Visit SEP Neurology [facility] [address] [place] [address] Uvaldo Donahue MD [address] [place] [address] 07/18/2025 1:00 PM EST Office Visit SEP [facility] [address] [place] [address] Rony Hylton MD [address] [facility] [place] [address] 07/25/2025 9:00 AM EST Office Visit SEP [facility] [address] [place] [address] Aminah De Leon MD [address] [place] [address] 12/08/2025 10:00 AM EDT Appointment [facility] [address] [place] [phone] May, Eleni Puga SUGAR REFINERY SUPERVISOR [address] [place] [address] 12/08/2025 11:00 AM EDT Office Visit SEP Vascular Surg [facility] [address] [place] [phone] [address] [place] [address] documented as of this encounter Procedures Procedure Name Priority Date/Time Associated Diagnosis Comments [facility] COLONOSCOPY Routine 03/20/2016 7:00 AM EDT documented in this encounter Results * [facility] COLONOSCOPY (03/20/2016 7:00 AM EDT) 03/20/2016 7:00 AM EDT Impressions [facility] - 03/20/2016 8:09 AM EDT Normal colon. This section is an excerpt of the full report. us Connor Isaacs MD GI PROCEDURE ORDERABLES Final R esult [facility] [address] [place] [address] documented in this encounter Visit Diagnoses Not on filedocumented in this encounter Additional Health Concerns Assessment Noted Time A fall risk assessment has been complete d for the patient 03/16/2015 8:32 AM EDT documented as of this encounter Care Teams Plant Floor Automation Manager Relationship Specialty Start Date End Date Aminah De Leon MD [address] [place] [address] PCP - General 06/16/09 Rony Tena MD [address] [place] [address] Surgery-Vascular Surgery 10/11/11 Ursula Hernandez, RN Disintegrator Registered Nurse 02/14/21 02/14/21 documented as of this encounter
[2025-03-16 15:51] LABS: Albumin Level 4.8 g/dl (3.5-5.0); Chloride 108 mmol/L (98-107); Potassium 4.8 mmoL/L (3.5-5.1); Sodium 140 mmol/L (136-145)
[2025-03-16 15:53] LABS: Alanine Aminotransferase 16 U/L (12-78); Alkaline Phosphatase 44 U/L (38-126); Anion Gap 12.8 mEq/L (5-15); Aspartate Amino Transferase 37 U/L (14-36); Bilirubin,Total 1.3 mg/dl (0.2-1.3); Blood Urea Nitrogen 22 mg/dl (7-17); Carbon Dioxide 24 mmol/L (22.0-30.0); Creatinine,Serum 1.40 mg/dl (0.52-1.04); Estimated Glomerular Filt Rate 37 ml/min (>60); GFR (African American) 44 ML/MIN (>60)
[2025-03-16 15:54] LABS: Albumin/Globulin Ratio 1.7 (1.1-1.8); Calcium 9.9 mg/dl (8.4-10.2); Cholesterol 111 mg/dl (140-200); Globulin 2.9 g/dL (1.3-3.2); Glucose 158 mg/dl (74-100); HDL Cholesterol 63 mg/dl (40-60); Total Protein,Serum 7.7 g/dl (6.3-8.2); Triglycerides 102 mg/dl (30-150)
--- NOTE | 2025-03-16 16:04 | HMH.EDGENADL ---
Discharge Plan Disposition Patient Disposition: Admitted Condition: Fair Clinical Impressions Clinical Impression: TIA (transient ischemic attack), Syncope Discharge ED Provider: Tex Ng Adult HPI General Chief complaint: Neuro Symptoms/Deficit Stated complaint: Poss CVA Time Seen by Provider: 03/16/25 15:32 Mode of Arrival: EMS Source of Information: Patient and EMS Description of Symptoms (Recalled from ER Triage Doc. by RN): Patient presents to ED with EMS as a stroke alert. Patient was grocery shopping and began having a sudden left-sided headache 7/10 with trouble finding her words and slurred speech. Pt's family reported to EMS she had turned pale and became nauseous as well. [id number]. History of Present Illness HPI narrative: Lin Moya is a 74y female with a history of fall in February of last year resulting in recurrent left-sided headaches, diabetes, on clopidogrel who presents to the emergency department as a stroke alert by EMS. 20 minutes prior to arrival at 1510, patient was shopping at a grocery store when she had sudden onset headache that encompasses the whole head, but she states it is worse on the left side. EMS notes that she was initially mildly bradycardic with heart rate in the upper 50s. They noticed some mild slurred speech but had no other focal neurological deficits. Patient states that she does not feel that her speech is slurred. EMS also reported occasional word finding difficulties and stated that they had to repeat questioning often. Patient states that she has never had a stroke before. She denies any numbness, tingling or weakness. She denies any vision changes. She states that this is not the worst headache of her life and that she occasionally gets headaches on the left side of her head after a fall in February 2024 where she hit the left side of her head. She denies any chest pain or shortness of breath. Related Data Home Medications ?Medication ?Instructions ?Recorded ?Confirmed aspirin 81 mg capsule 81 mg PO HS 03/16/25 03/16/25 brimonidine 0.2 % eye drops 1 drp ophthalmic (eye) HS 03/16/25 03/16/25 buspirone 15 mg tablet 15 mg PO DAILY 03/16/25 03/16/25 carvedilol 25 mg tablet 25 mg PO BID 03/16/25 03/16/25 clopidogrel 75 mg tablet 75 mg PO DAILY 03/16/25 03/16/25 dorzolamide 22.3 mg-timolol 6.8 1 drp ophthalmic (eye) HS 03/16/25 03/16/25 mg/mL eye drops fluoxetine 40 mg capsule 40 mg PO 03/16/25 03/16/25 gabapentin 300 mg capsule 300 mg PO BID 03/16/25 03/16/25 latanoprost 0.005 % eye drops 1 drp ophthalmic (eye) 03/16/25 03/16/25 metformin 500 mg tablet 500 mg PO HS 03/16/25 03/16/25 rosuvastatin 20 mg tablet 20 mg PO DAILY 03/16/25 03/16/25 Allergies Allergy/AdvReac Type Severity Reaction Status Date / Time No Known Allergies Allergy Verified 03/16/25 20:37 [facility] Disclaimer: The information contained in this section may have been updated after the patient was seen, as this information can be updated by other users. 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 Hyperlipemia Depression Anxiety Neuropathy Diabetes Hypertension Social History (Updated 03/16/25 @ 21:52 by Suki Ruiz APRN) Smoking Status: Never smoker alcohol intake: never current occupational status: retired Travel in the last 8 weeks?: None Have you lived/traveled outside [place] in past 30 days?: No Contact w/someone who lives/traveled outside US past 30 days?: No Exposure to someone with infectious disease in past 14 days?: No Do you have a fever (greater than 100.4 F or 38 C)?: No Have you tested positive for COVID-19?: No Exposed to someone with COVID-19 in past 14 days?: No Do you have a sore throat?: No Do you have a cough?: No Do you have any weakness?: No Do you have any diarrhea?: No Are you experiencing any unusual bleeding?: No Do you have any muscle aches/pain?: No Do you have any abdominal pain?: No Are you experiencing loss of taste or smell?: No ROS Obtained: Yes Systems reviewed as appropriate & no additional complaints except as documented Physical Exam General General appearance: alert and in no apparent distress Head Head exam: atraumatic Eye Eye exam: Present normal appearance, PERRL and EOMI ENT ENT exam: Present normal external ear exam Neck Neck exam: Present full ROM Chest Chest inspection: Present symmetric chest wall rise Respiratory Respiratory exam: Present normal lung sounds bilaterally; Absent respiratory distress, wheezes or stridor Cardiovascular Cardiovascular exam: Present regular rate and normal rhythm Abdominal Exam Abdominal exam: Present soft; Absent tenderness or guarding Extremities Exam Extremities exam: Present normal inspection Back Exam Back exam: Present normal inspection Neurological Exam Neurological exam: Present alert, oriented X3, CN II-XII intact and other (Normal [id number] testing, no dysdiadochokinesia, normal [id number] testing.); Absent motor sensory deficit Psychiatric Psychiatric exam: Present normal affect Skin Skin exam: Present warm and dry Medical Decision Making Medical Records Screening: Per USPSTF and CDC recommendations, given the prevalence of disease in our region, it is our hospital?s policy to screen for HIV and viral Hepatitis for all patients aged 18 and over and those with ongoing risk factors. Cristian Inquiry Pt receiving controlled substance: No Vital Signs: 03/16/25 15:48 03/16/25 15:53 03/16/25 15:53 Temperature 98.0 F 98.0 F Temperature Source Oral Pulse Rate 58 L 63 Pulse Rate [Right] 63 Respiratory Rate 10 L 18 18 Blood Pressure 144/66 H 131/73 Blood Pressure [Right Arm] 131/73 Blood Pressure Mean [Right Arm] 92 02 Sat by Pulse Oximetry 100 94 L 94 L Oxygen Delivery Method Room Air 03/16/25 16:00 03/16/25 16:30 03/16/25 17:00 Temperature Temperature Source Pulse Rate 59 L 62 60 Pulse Rate [Right] Respiratory Rate 14 13 12 Blood Pressure 136/61 129/63 135/72 Blood Pressure [Right Arm] Blood Pressure Mean [Right Arm] 02 Sat by Pulse Oximetry 99 96 97 Oxygen Delivery Method 03/16/25 17:30 03/16/25 19:17 03/16/25 20:00 Temperature Temperature Source Pulse Rate 60 63 Pulse Rate [Right] Respiratory Rate 15 14 Blood Pressure 132/65 161/77 H Blood Pressure [Right Arm] Blood Pressure Mean [Right Arm] 02 Sat by Pulse Oximetry 98 97 Oxygen Delivery Method Room Air 03/16/25 20:07 Temperature 98.4 F Temperature Source Pulse Rate 68 Pulse Rate [Right] Respiratory Rate 15 Blood Pressure 116/81 Blood Pressure [Right Arm] Blood Pressure Mean [Right Arm] 02 Sat by Pulse Oximetry Oxygen Delivery Method Room Air Lab Data Lab Results 03/16/25 15:26: WBC 4.8, RBC 4.22, Hgb 12.3, Hct 38.5, MCV 91.2, MCH 29.1, MCHC 31.9, RDW 13.2, Plt Count 144, MPV 10.7 H, Neut % (Auto) 55.0, Lymph % (Auto) 29.6, [place] % (Auto) 9.7 H, Eos % (Auto) 3.8, Baso % (Auto) 1.7, Neut # (Auto) 2.6, Lymph # (Auto) 1.4, [place] # (Auto) 0.5, Eos # (Auto) 0.2, Baso # (Auto) 0.1, PT 11.7, INR 1.06, APTT 21.9 L, Sodium 140, Potassium 4.8, Chloride 108 H, Carbon Dioxide 24, Anion Gap 12.8, BUN 22 H, Creatinine 1.40 H, Estimated Creat Clear 46, Estimated GFR 37 L, Est GFR ( Amer) 44 L, Glucose 158 H, Calcium 9.9, Total Bilirubin 1.3, AST 37 H, ALT 16, Alkaline Phosphatase 44, Troponin I < 0.01, Total Protein 7.7, Albumin 4.8, Globulin 2.9, Albumin/Globulin Ratio 1.7, Triglycerides 102, Cholesterol 111 L, LDL Cholesterol Direct < 30.00 L, VLDL Cholesterol 20, HDL Cholesterol 63 H, Cholesterol/HDL Ratio 1.8, TSH 3.70, Free T4 0.98, Plasma/Serum Alcohol < 10 03/16/25 18:30: Urine Color Yellow, Urine Appearance Clear, Urine pH 7.5, Ur Specific [place] 1.010, Urine Protein 2+ A, Urine Glucose (UA) Negative, Urine Ketones Negative, Urine Blood 1+ A, Urine Nitrate Negative, Urine Bilirubin Negative, Urine Urobilinogen 2.0, Ur Leukocyte Esterase Negative, Urine RBC None, Urine WBC 5-10, Ur Squamous Epith Cells Occasional, Urine Bacteria 4+, Urine Opiates Screen Negative, Urine Methadone Screen Negative, Ur Barbituates Screen Negative, Ur Phencyclidine Scrn Negative, Ur Amphetamines Screen Negative, U Benzodiazepines Scrn Negative, Urine Cocaine Screen Negative, U Marijuana (THC) Screen Negative 03/16/25 18:44: Troponin I < 0.01 03/16/25 15:26 03/16/25 15:26 Orders (Tests/Meds): ED MEDICATIONS Generic Name Dose Route Start Last Admin Trade Name Jacobo PRN Reason Stop Dose Admin Acetaminophen 650 mg 03/16/25 19:15 Acetaminophen 325mg Tab PO 04/15/25 19:14 Q4HP PRN Fever or Mild Pain (1-3) Hydrocodone Bitart/Acetaminophen 1 tab 03/16/25 19:15 Hydrocodone/Apap 5/325 Mg Tablet PO 04/15/25 19:14 Q4HP PRN Mild to Moderate Pain (1-6) Al Hydrox/Mg Hydrox/Simethicone 30 ml 03/16/25 19:15 Aluminum/Magnesium/Simethicone 30ml Udc PO 04/15/25 19:14 QIDP PRN Dyspepsia Enoxaparin Sodium 40 mg 03/18/25 09:00 Enoxaparin 40mg/0.4ml Syringe SUBCUT 04/17/25 08:59 DAILY [facility] Insulin Human Lispro 0 unit 03/16/25 21:00 03/16/25 21:38 Humalog 100 Units/Ml 10ml Vial (Ssi) SUBCUT 04/15/25 20:59 Not Given ACHS [facility] Protocol Ondansetron HCl 4 mg 03/16/25 19:15 Ondansetron 4mg/2ml Vial IV 04/15/25 19:14 Q8HP PRN Nausea Sodium Chloride 100 ml 03/16/25 19:15 Sodium Chloride 0.9% 100ml Adv IV 04/15/25 19:14 CONT FARRUKH Discontinued Medications Generic Name Dose Route Start Last Admin Trade Name Jacobo PRN Reason Stop Dose Admin Lactated Ringer's 1,000 mls @ 999 mls/hr 03/16/25 17:32 03/16/25 19:50 Lactated Ringer's 1000 Ml Bag IV 03/16/25 18:32 Infused .Q1H1M ONE Infusion Iopamidol 80 ml 03/16/25 15:37 03/16/25 15:39 Iopamidol-370 (76%);100ml Bottle IV 03/16/25 15:38 80 ml ONCE ONE Administration Sodium Chloride 50 ml 03/16/25 15:37 03/16/25 15:39 0.9 % Sodium Chloride 50 Ml Vial IV 03/16/25 15:38 50 ml ONCE ONE Administration Sodium Chloride 10 ml 03/16/25 15:37 03/16/25 15:39 Sodium Chloride 0.9% 10ml Syr (Rad Only) IV 03/16/25 15:38 10 ml ONCE ONE Administration ORDERS Category Date Time Status CT angio head Stat Cat Scan 03/16/25 15:[address] angio neck Stat Cat Scan 03/16/25 15:[address] head/brain wo con Stat Cat Scan 03/16/25 15:34 Completed CXR --portable [XR chest portable] Stat Exams 03/16/25 16:53 Completed Activated Partial Thrombo Time Stat Lab 03/16/25 15:26 Completed Basic Metabolic Panel AMLAB Lab 03/17/25 06:00 Ordered Complete Blood Count Auto Diff AMLAB Lab 03/17/25 06:00 Ordered Complete Blood Count Auto Diff Stat Lab 03/16/25 15:26 Completed Comprehensive Metabolic Panel Stat Lab 03/16/25 15:26 Completed Drug Screen,Urine Stat Lab 03/16/25 18:30 Completed Ethyl Alcohol Stat Lab 03/16/25 15:26 Completed Free T4 (Free Thyroxine) Stat Lab 03/16/25 15:26 Completed Lipid Panel Stat Lab 03/16/25 15:26 Completed Prothrombin Time INR Stat Lab 03/16/25 15:26 Completed TSH [Thyroid Stimulating Hormone] Stat Lab 03/16/25 15:26 Completed Troponin I Q3H Lab 03/16/25 18:44 Completed Troponin I Q3H Lab 03/16/25 21:50 Completed Troponin I Stat Lab 03/16/25 15:26 Completed Urinalysis and Microscopic Stat Lab 03/16/25 18:30 Completed Urine Culture Stat Micro 03/16/25 18:30 Received CA echo doppler complete Routine Y 03/16/25 19:15 Ordered ECG Data Tracing #1: I reviewed this ECG and interpreted as documented below: Normal sinus rhythm. No ST elevation or depression. QTc normal at 436 Medical Decision Narrative: Lin Moya is a 74y female with a history of fall in February of last year resulting in recurrent left-sided headaches, diabetes, on clopidogrel who presents to the emergency department as a stroke alert by EMS. 20 minutes prior to arrival at 1510, patient was shopping at a grocery store when she had sudden onset headache that encompasses the whole head, but she states it is worse on the left side. EMS notes that she was initially mildly bradycardic with heart rate in the upper 50s. They noticed some mild slurred speech but had no other focal neurological deficits. Patient states that she does not feel that her speech is slurred. EMS also reported occasional word finding difficulties and stated that they had to repeat questioning often. Patient states that she has never had a stroke before. She denies any numbness, tingling or weakness. She denies any vision changes. She states that this is not the worst headache of her life and that she occasionally gets headaches on the left side of her head after a fall in February 2024 where she hit the left side of her head. She denies any chest pain or shortness of breath. Patient was stroke alerted prior to arrival and was taken immediately to CT scanner. Patient's initial NIHSS was 2 for mild dysarthria and very mild word finding difficulty. Patient CT imaging is interpreted by me personally. No intracranial hemorrhage, mass or midline shift. No large vessel occlusion. Patient's imaging was pushed to radiology for rapid interpretation, which confirmed no acute intracranial process, no large vessel occlusions. See radiology reports for details. On reassessment at 1610, patient's family is at the bedside. Patient states that her headache is resolving and NIHSS at this time is 0. TNK was considered, however given resolution of symptoms with NIHSS of 0, it is felt that it is not indicated at this time. Family provides additional details of the history. They state that they were walking in the store and when family member looked back and noticed that she was breaking out into a sweat and asked if she was all right and she stated no . They then sat her down and stated that she lost consciousness for 1 to 1.5 minutes. Prior to this, they asked her if she felt like her blood sugar was low and she said no. I said that her lips turned blue during this episode of unconsciousness but never lost a pulse. They stated that she was slow to get back to her normal after she did regain consciousness. They stated there is a family history of TIAs and that she is followed by neurologist, Dr. Uvaldo Donahue at [facility] for recurrent left-sided headaches secondary to this fall in February. Her next appointment with him is on May 30. Differential diagnosis is broad and includes, but not limited to: TIA, cardiac arrhythmia, hypoglycemia, metabolic derangement, electrolyte derangement, ACS, hypothyroidism, orthostatic syncope, vasovagal syncope, among others. The most morbid conditions were considered and workup was based on these. Workup included: CTAs of the head and neck, CT head without contrast, chest x-ray, troponin, CBC with differential, lipid panel, PT/INR, PTT, CMP, ethyl alcohol level, urinalysis, EKG, UDS, TSH/free T4 EKG without evidence of arrhythmia, QTc prolongation or QRS widening. no STEMI. CBC grossly unremarkable nonactionable with normal white blood cell count of 4.8, coagulation studies nonactionable, mild MELINA with creatinine of 1.4 and BUN elevated at 22. Patient does not believe she has any baseline renal dysfunction. Liver enzymes grossly unremarkable nonactionable. Initial troponin less than 0.01 and repeat troponin less than 0.01. UDS negative. Urinalysis without evidence of infection. It is unclear at this time the source of patient's syncopal episode she has remained stable throughout her ED visit. Is possible she had a TIA and would benefit from admission for MRI and echocardiogram as I cannot completely rule out cardiac event. Patient and family were agreeable to admission at this time. I discussed patient's case with hospital medicine service for admission and they graciously accepted the patient for admission. Critical Care Critical Care Time Critical Care Time: Yes Attestation: On 03/16/25, the high probability of a clinically significant, sudden or life threatening deterioration of the following system(s) required my full and direct attention, intervention and personal management. The time I documented below is in addition to time spent performing reported procedures but includes the following listed in this critical care notation. Total Time Total Critical Care Time: 35
--- NOTE | 2025-03-16 16:06 | ECG_ITS ---
APPROVED REPORT Exam: Resting ECG HR:60 bpm ECG Measurements Heart Rate 60 AXES OR 197 P 68 QRSd 114 QRS 20 QT 434 T 67 QTc 436 Conclusion SINUS RHYTHM MODERATE INTRAVENTRICULAR CONDUCTION DELAY [110+ ms QRS DURATION] BORDERLINE ECG UNCONFIRMED REPORT Normal sinus rhythm. No ST elevation or depression. Electronically signed by : AYDIN WILLIAMSON, 03/17/2025 00:03:35
[2025-03-16 16:09] LABS: Creatinine Clearance Estimated 46 mL/min (50-200); Troponin I < 0.01 ng/ml (0.00-0.034)
[2025-03-16 16:11] LABS: Activated Partial Thrombo Time 21.9 seconds (22.8-30.6); INR 1.06 (0.9-1.1); Prothrombin Time 11.7 seconds (10.1-12.5)
--- NOTE | 2025-03-16 16:53 | XR_ITS ---
PROCEDURE INFORMATION: Exam: XR Chest Exam date and time: 03/16/2025 4:56 PM Age: 74 years old Clinical indication: Other: Syncope TECHNIQUE: Imaging protocol: Radiologic exam of the chest. Views: 1 view. COMPARISON: CT ANGIO NECK 03/16/2025 3:40 PM FINDINGS: Lungs: Shallow degree of inspiration. No consolidation or pulmonary edema. Pleural spaces: No pleural effusion. No pneumothorax. Heart/Mediastinum: The cardiomediastinal silhouette is not enlarged. Bones/joints: Visualized bones demonstrate no acute abnormality. IMPRESSION: No acute abnormality is identified.
[2025-03-16 17:53] LABS: Free T4 (Free Thyroxine) 0.98 ng/dl (0.78-2.19)
[2025-03-16 18:07] LABS: Thyroid Stimulating Hormone 3.70 uIU/mL (0.465-4.68)
[2025-03-16] MEDS: LACTATED RINGERS 1000ML 1,000 ML 999 ML IV (18:17)
[2025-03-16 18:33] LABS: Microscopic, Urine URINE MICROSCOPIC (MICROSCOPIC)
[2025-03-16 18:39] LABS: Bilirubin,Urine Negative (Negative); Color,Urine YELLOW (Yellow); Glucose,Urine (UA) Negative (Negative); Ketones,Urine Negative (Negative); Leukocyte Esterase,Urine Negative (Negative); PH,Urine 7.5 (5.0-8.5); Protein,Urine 2+ (Negative); Specific Gravity, Urine 1.010 (1.005-1.030); Urobilinogen,Urine 2.0 EU/dl (0.2)
[2025-03-16 18:52] LABS: Benzodiazepines Screen,Urine Negative ng/ml (<200)
[2025-03-16 18:53] LABS: Amphetamine/Metha Screen,Urine Negative ng/ml (<1000)
[2025-03-16 18:54] LABS: Barbiturates Screen,Urine Negative ng/ml (<200)
[2025-03-16 18:55] LABS: Methadone Screen,Urine Negative ng/ml (<300)
[2025-03-16 18:56] LABS: Opiate Screen,Urine Negative ng/ml (<300)
[2025-03-16 18:57] LABS: Phencyclidine Screen,Urine Negative ng/ml (<25)
[2025-03-16 19:12] LABS: Bacteria,Urine 4+ /lpf; Squamous Epithelial Cell,Urine Occasional #/hpf (0-5)
[2025-03-16 19:26] LABS: Troponin I < 0.01 ng/ml (0.00-0.034)
--- NOTE | 2025-03-16 20:07 | PC.NURSE ---
Report called to SANTOS Keller
--- NOTE | 2025-03-16 20:28 | PC.NURSE ---
PATIENT ARRIVED TO FLOOR VIA STRETCHER FROM ED AT 20:27.
--- NOTE | 2025-03-16 21:09 | PC.NURSE ---
patient is somewhat of a poor historian - updated home medications to the best of my ability, son is bringing in rx bottles in the morning to verify dosages. dispensary clerk is going to attempt to contact [facility] for patient medical history.
[2025-03-16 21:26] LABS: POC Glucose,Bedside 91 gm/dL (70-110)
--- NOTE | 2025-03-16 21:39 | P.HP_ITS ---
<Statement entered by Connor Tolbert MD - 03/17/25 15:02> Rounded on patient after nurse practitioner. Personally examined and interviewed patient. Agree with exam findings and care plan as documented. History of Present Illness *Admission Date: 03/16/25 *Reason for visit:: Syncope *History of present illness: Ms. Moya is a 74-year-old female presents to the ER after syncopal episode. Patient has a past medical history of hypertension, diabetes mellitus, hyperlipidemia, neuropathy, anxiety, and depression. Patient states she was out shopping when all of a sudden she began to feel like she was burning up. She states she was sweating profusely and could ring out close. She states she told her sister that she had to sit down. She states she walked over to her stool and sat and it felt like she was going to vomit. Her sister called her daughter over because she could not hold the patient up. She states she does not remember what happened but was told that she passed out. She states she had a headache at that time and it continues but has gotten better. She states that it is a throbbing pain and rates it a 6 out of 10 on the left side of her head. She states when she got up to walk in the ER she felt generally weak. She denied any one-sided weakness, visual changes, palpitations, paresthesias, dysphagia, or dysarthria. She states that her family and the EMS worker told her that her speech was slurred but she did not notice. Patient denies fever/chills, cough, congestion, runny nose, dyspnea, chest pain, abdominal pain, vomiting, diarrhea, constipation, lightheadedness, or dizziness. [facility] Disclaimer: The information contained in this section may have been updated after the patient was seen, as this information can be updated by other users. 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 Hyperlipemia Depression Anxiety Neuropathy Diabetes Hypertension Social History (Updated 03/16/25 @ 20:54 by Niru Lobo RN) Smoking Status: Never smoker alcohol intake: never current occupational status: retired Travel in the last 8 weeks?: None Other Medical History Have you received the Flu Vaccine for this season: No Have you received the Pneumonia Vaccine: No Review of Systems Constitutional Constitutional: Denies chills, Denies fever(s), Reports headache(s) and Reports weakness Eyes Eyes: Denies blurry vision, Denies change in vision and Denies diplopia ENT Ears, Nose, Mouth, and Throat: Denies dizziness and Reports headache(s) *Cardiovascular Cardiovascular: Denies chest pain, Reports diaphoresis, Denies dyspnea, Denies lightheadedness and Denies palpitations *Respiratory Respiratory: Denies cough and Denies dyspnea *Gastrointestinal Gastrointestinal: Denies abdominal pain, Denies constipation, Denies loose stools, Reports nausea and Denies vomiting *Genitourinary Genitourinary: Reports system reviewed and no additional complaints, except as documented *Musculoskeletal Musculoskeletal: Denies numbness and Denies tingling *Neurologic Neurologic: Denies dizziness, Reports headache(s), Denies numbness, Denies other visual disturbances, Denies paresthesias, Denies sensory deficit, Denies tingling and Reports weakness Endocrine Endocrine: Denies palpitations Meds Home Medications and Allergies Home Medications ?Medication ?Instructions ?Recorded ?Confirmed ?Type aspirin 81 mg capsule 81 mg PO HS 03/16/25 5 History brimonidine 0.2 % eye drops 1 drp ophthalmic (eye) HS 03/16/25 03/16/25 History buspirone 15 mg tablet 15 mg PO DAILY 03/16/2510/05 History carvedilol 25 mg tablet 25 mg PO BID 03/16/25 History clopidogrel 75 mg tablet 75 mg PO DAILY 03/16/2510/05 History dorzolamide 22.3 mg-timolol 6.8 1 drp ophthalmic (eye) HS 03/16/25 03/16/25 History mg/mL eye drops fluoxetine 40 mg capsule 40 mg PO HS 03/16/25 5 History gabapentin 300 mg capsule 300 mg PO BID 03/16/2503/16 History latanoprost 0.005 % eye drops 1 drp ophthalmic (eye) H S 03/16/25 03/16/25 History metformin 500 mg tablet 500 mg PO HS 03/16/25 History rosuvastatin 20 mg tablet 20 mg PO DAILY 03/16/2510/05 History New Prescriptions to Start Prescriptions: Allergies Allergy/AdvReac Type Severity Reaction Status Date / Time No Known Allergies Allergy Verified 03/16/25 20:37 Exam Data for Last 24 hours Vital signs and Labs for Last 24 Hours: Temp Pulse Resp BP Pulse Ox O2 Del Method 98.1 F 63 14 157/73 H 96 Room Air 03/16/25 21:00 03/16/25 21:00 03/16/25 21:00 03/16/25 21:00 03/16/25 21:00 03/16/25 21:00 Laboratory Results - last 24 hr 03/16/25 15:26: WBC 4.8, RBC 4.22, Hgb 12.3, Hct 38.5, MCV 91.2, MCH 29.1, MCHC 31.9, RDW 13.2, Plt Count 144, MPV 10.7 H, Neut % (Auto) 55.0, Lymph % (Auto) 29.6, [place] % (Auto) 9.7 H, Eos % (Auto) 3.8, Baso % (Auto) 1.7, Neut # (Auto) 2.6, Lymph # (Auto) 1.4, [place] # (Auto) 0.5, Eos # (Auto) 0.2, Baso # (Auto) 0.1, PT 11.7, INR 1.06, APTT 21.9 L, Sodium 140, Potassium 4.8, Chloride 108 H, Carbon Dioxide 24, Anion Gap 12.8, BUN 22 H, Creatinine 1.40 H, Estimated Creat Clear 46, Estimated GFR 37 L, Est GFR ( Amer) 44 L, Glucose 158 H, Calcium 9.9, Total Bilirubin 1.3, AST 37 H, ALT 16, Alkaline Phosphatase 44, Troponin I < 0.01, Total Protein 7.7, Albumin 4.8, Globulin 2.9, Albumin/Glob ulin Ratio 1.7, Triglycerides 102, Cholesterol 111 L, LDL Cholesterol Direct < 30.00 L, VLDL Cholesterol 20, HDL Cholesterol 63 H, Cholesterol/HDL Ratio 1.8, TSH 3.70, Free T4 0.98, Plasma/Serum Alcohol < 10 03/16/25 18:30: Urine Color Yellow, Urine Appearance Clear, Urine pH 7.5, Ur Specific [place] 1.010, Urine Protein 2+ A, Urine Glucose (UA) Negative, Urine Ketones Negative, Urine Blood 1+ A, Urine Nitrate Negative, Urine Bilirubin Negative, Urine Urobilinogen 2.0, Ur Leukocyte Esterase Negative, Urine RBC None, Urine WBC 5-10, Ur Squamous Epith Cells Occasional, Urine Bacteria 4+, Urine Opiates Screen Negative, Urine Methadone Screen Negative, Ur Barbituates Screen Negative, Ur Phencyclidine Scrn Negative, Ur Amphetamines Screen Negative, U Benzodiazepines Scrn Negative, Urine Cocaine Screen Negative, U Marijuana (THC) Screen Negative 03/16/25 18:44: Troponin I < 0.01 03/16/25 21:18: POC Glucose 91 I & O for Last 24 hours: Intake & Output 03/13/25 03/14/25 03/15/25 03/16/25 23:59 23:59 23:59 23:59 Intake Total 1000 / 1000 Balance 1000 / 1000 Weight 82.871 kg *Routine HEENT Exam Head: Present normocephalic and atraumatic Eye: Present EOMI and PERRL ENT: Present mucous membranes moist *Routine Neck Exam Neck: Present supple and full ROM *Routine Respiratory Exam Respiratory: Present CTA bilaterally, normal respiratory effort, able to speak in complete sentences and symmetric chest movement; Absent accessory muscle use, rales, respiratory distress, rhonchi, wheezes or crackles *Routine Cardiovascular Exam Cardiovascular: Present RRR, Normal S1 and Normal S2 *Routine Abdominal Exam Abdominal: Present soft and normoactive bowel sounds; Absent tenderness *Routine Rectal Exam Rectal:: deferred *Routine Genitalia Exam Genitalia:: deferred *Routine Extremities Exam Extremities: Present full ROM, pulses intact and normal capillary refill; Absent edema *Routine Skin Exam Skin: Present intact, dry and warm; Absent erythema *Routine Neurological Exam Neurological: Present alert and CN II-XII intact Assessment and Plan *Assessment and plan (1) TIA (transient ischemic attack): Status: Acute Category: Medical Code(s): G45.9 - Transient cerebral ischemic attack, unspecified Plan: CT head negative for acute intracranial process MRI of the brain pending Symptoms have mostly resolved Neurochecks every 4 hours (2) Syncope: Status: Acute Category: Medical Code(s): R55 - Syncope and collapse Plan: Echo and carotid ultrasound pending Cardiac monitoring (3) MELINA (acute kidney injury): Status: Acute Category: Medical Code(s): N17.9 - Acute kidney failure, unspecified Plan: NS at 100 mL an hour Monitor BMP daily (4) Diabetes: Status: Acute Category: Medical Code(s): E11.9 - Type 2 diabetes mellitus without complications Plan: Sliding scale insulin Glucose checks before meals and at bedtime BMP daily (5) Hypertension: Status: Acute Category: Medical Code(s): I10 - Essential (primary) hypertension Plan: Continue home antihypertensive once med rec is complete Vital signs every 4 hours (6) Hyperlipemia: Status: Acute Category: Medical Code(s): E78.5 - Hyperlipidemia, unspecified Plan: Continue rosuvastatin once med rec is complete Plan Spoke with Tex in the ER. Decision to admit based on syncopal episode, dysarthria, and headache with need to rule out acute CVA or cardiac arrhythmia as well as treating patient's MELINA with IV fluids.
[2025-03-16 22:26] LABS: Troponin I < 0.01 ng/ml (0.00-0.034)
[2025-03-17] VITALS: BP 127/59; PULSE 60; RESP 15; TEMP 36.6; O2SAT 98
--- NOTE | 2025-03-17 03:55 | PC.NURSE ---
patient ambulated to the toilet and stated she felt swimmy in her head after getting back into bed. neuro assessment completed, WNL. vitals stable - see VS tab.
[2025-03-17 04:00] VITALS: BP 141/73; PULSE 50; PULSE 64; RESP 16; TEMP 36.6; O2SAT 96; BMI 29.5
[2025-03-17 05:54] LABS: Hematocrit 35.2 % (37.0-47.0); Hemoglobin 11.3 g/dL (12.2-16.2); Immature Granulocytes % 0.2 %; Mean Corpuscular HGB Conc 32.1 g/dL (31.8-35.4); Mean Corpuscular Hemoglobin 29.0 pg (27.0-31.2); Mean Corpuscular Volume 90.5 fl (81-99); Nucleated Red Blood Cells % 0 %; Platelet Count 111 K/mm3 (142-424); Red Blood Count 3.89 M/mm3 (4.20-5.40); Red Cell Distribution Width-SD 42.5 fL; White Blood Count 4.3 K/mm3 (4.8-10.8)
--- NOTE | 2025-03-17 06:00 | CA_ITS ---
FINAL REPORT TECHNIQUE: Color Doppler, duplex Doppler and morse scale sonography of the bilateral neck arterial vasculature was performed. Velocities were measured in the carotid arteries. Stenosis evaluation based on the validated velocity criteria. CLINICAL HISTORY: TIA FINDINGS: The peak systolic velocity of the right common carotid artery is 93 cm/s. The peak systolic velocity of the right internal carotid artery is 75 cm/s and end diastolic velocity 18 cm/s. The ICA/CCA ratio is 0.91. A minimal amount of plaque is present. The right external carotid artery is patent. The right vertebral artery is patent with antegrade flow. The peak systolic velocity of the left common carotid artery is 91 cm/s. The peak systolic velocity of the left internal carotid artery is 136 cm/s and end diastolic velocity 36 cm/s. The ICA/CCA ratio is 1.50. A minimal amount of plaque is present. The left external carotid artery is patent.The left vertebral artery is patent with antegrade flow. IMPRESSION: Less than 50% bilateral carotid stenoses. Bilateral patent vertebral arteries with antegrade flow. If indicated, CTA or MRA could further evaluate. Reviewed, Interpreted and Dictated by Mian San MD Transcribed by Camelia Woodall Authenticated and [facility]
--- NOTE | 2025-03-17 06:00 | CA_ITS ---
APPROVED REPORT EXAM: Comprehensive 2D, Doppler, and color-flow Echocardiogram Board Member: Suellen Hicks RDCS Ht: 5 ft 6 in Wt: 186lbs BSA: 1.94 BP: 157/73 mmHg Indications: SYNCOPE TIA M-Mode Dimensions RVDd 1.64 cm (0.9-2.6) LA Diam 2.87 cm (1.9-4.0) LVDd 5.98 cm (3.5-5.7) LVDs 4.63 cm (3.5-5.7) IVSd 0.82 cm (0.6-1.1) PWd 0.57 cm (0.6-1.1) EF (Teich) 44.70% FS 22.60% EDV (Teich) 178.60 mL ESV (Teich) 98.80 mL LV Diastology E Decel Time 257 (160-240 msec) E/A Ratio 0.7 Mitral Valve MV E Max Jason. 78.0 (40-130 cm/s) MV A Velocity 106.0 (40-130 cm/s) E/A Ratio 0.74 MV PHT 75.0 ms Left Ventricle The left ventricle is normal size. Left ventricular systolic function is normal. The left ventricular ejection fraction is within the normal range. There is increased left ventricular wall thickness. There is normal LV segmental wall motion. Transmitral Doppler flow pattern suggests impaired LV relaxation. LVEF is 55% Right Ventricle The right ventricle is normal size. The right ventricular systolic function is normal. Atria The left atrium size is normal. The right atrium size is normal. Color Doppler demonstrates possible [id number] interatrial shunt. Aortic Valve The aortic valve is mildly thickened. There is no hemodynamically significant aortic valvular stenosis. Trace aortic regurgitation is present. Mitral Valve The mitral valve is normal in structure. No evidence of mitral valve stenosis. Trace mitral regurgitation is present. Tricuspid Valve The tricuspid valve leaflets are thin and pliable. Trace tricuspid regurgitation. There is insufficient TR jet to estimate RVSP. Pulmonic Valve The pulmonary valve is grossly normal in structure. Trace pulmonic valve regurgitation is present. Great Vessels The aortic root is normal in size. IVC is normal in size and collapses >50% with inspiration. Pericardium There is no pericardial effusion. Other Information Study Quality: Fair Conclusion Normal biventricular systolic function. No significant valvular stenosis or regurgitation. Color Doppler demonstrates possible [id number] interatrial shunt. Electronically signed by : Jeanne Maldonado MD 03/17/2025 12:25:33
[2025-03-17 06:05] LABS: Anion Gap 10.5 mEq/L (5-15); Blood Urea Nitrogen 18 mg/dl (7-17); Calcium 8.9 mg/dl (8.4-10.2); Carbon Dioxide 22 mmol/L (22.0-30.0); Chloride 110 mmol/L (98-107); Creatinine Clearance Estimated 57 mL/min (50-200); Creatinine,Serum 1.10 mg/dl (0.52-1.04); Estimated Glomerular Filt Rate 48 ml/min (>60); GFR (African American) 58 ML/MIN (>60); Glucose 83 mg/dl (74-100); Potassium 3.5 mmoL/L (3.5-5.1); Sodium 139 mmol/L (136-145)
[2025-03-17 07:57] VITALS: BP 111/46; PULSE 66; RESP 16; TEMP 36.7; O2SAT 97
--- NOTE | 2025-03-17 07:59 | HMH.PHAINT1 ---
Pharmacy Intervention Comments: home medication list verified using list from outpatient pharmacy and discussion with patient and daughter
[2025-03-17 08:00] VITALS: PULSE 66
[2025-03-17] MEDS: 0.9 % SODIUM CHLORIDE 1000ML 1,000 ML 100 ML IV (08:10)
--- NOTE | 2025-03-17 08:30 | MR_ITS ---
FINAL REPORT TECHNIQUE: Multiplanar MR, without contrast administration CLINICAL HISTORY: Dysarthria/syncope/headache FINDINGS: Diffusion sequences show no signal abnormalities to indicate acute infarct. There are minimal signal abnormalities in the deep white matter consistent with chronic microvascular ischemia. There is an empty sella. Ventricles are normal. No edema or hemorrhage is seen. Major vessel flow-voids are intact. IMPRESSION: Minimal changes of chronic microvascular ischemia. Reviewed, Interpreted and Dictated by Mian San MD Transcribed by Sarah Vaughan Authenticated and [facility]
[2025-03-17 10:35] LABS: Hemoglobin A1C 5.8 % (4.0-6.0)
[2025-03-17] MEDS: LEVOFLOXACIN/D5W 750 MG/150 ML 750 MG/150 ML PIGGYBACK 100 MG IV (11:32)
[2025-03-17 11:42] LABS: POC Glucose,Bedside 93 gm/dL (70-110)
[2025-03-17 12:00] VITALS: BP 131/60; PULSE 60; PULSE 63; RESP 16; TEMP 36.6; O2SAT 98
--- NOTE | 2025-03-17 12:16 | P.DS_ITS ---
<Statement entered by Connor Tolbert MD - 03/17/25 14:55> Rounded on patient after nurse practitioner. Personally examined and interviewed patient. Agree with exam findings and care plan as documented. General Admission date:: 03/16/25 Discharge date: 03/17/25 HPI HPI HPI: Ms. Moya is a 74-year-old female presents to the ER after syncopal episode. Patient has a past medical history of hypertension, diabetes mellitus, hyperlipidemia, neuropathy, anxiety, and depression. Patient states she was out shopping when all of a sudden she began to feel like she was burning up. She states she was sweating profusely and could ring out close. She states she told her sister that she had to sit down. She states she walked over to her stool and sat and it felt like she was going to vomit. Her sister called her daughter over because she could not hold the patient up. She states she does not remember what happened but was told that she passed out. She states she had a headache at that time and it continues but has gotten better. She states that it is a throbbing pain and rates it a 6 out of 10 on the left side of her head. She states when she got up to walk in the ER she felt generally weak. She denied any one-sided weakness, visual changes, palpitations, paresthesias, dysphagia, or dysarthria. She states that her family and the EMS worker told her that her speech was slurred but she did not notice. Patient denies fever/chills, cough, congestion, runny nose, dyspnea, chest pain, abdominal pain, vomiting, diarrhea, constipation, lightheadedness, or dizziness. Hospital Course Hospital Course Hospital Course: Ms. Moya is a 74-year-old female who presented to the emergency department via EMS after a sudden onset headache encompassing the entire head, worse on the left side. She was grocery shopping with her family when she began to have this headache, became diaphoretic and felt weak. Family sat her down where they states she had a syncopal episode for approximately 1 to 2 minutes. Patient was stable during this time, breathing appropriately, no loss of pulse. EMS was called and patient was found to be slightly bradycardic heart rate in the 50s, FSBS was 178 per family. They state as she came to her speech was garbled/difficulty finding words. The decision was made to bring the patient to the emergency department for further assessment and workup. She has a significant history of hyperlipidemia, type 2 diabetes, glaucoma, depression, neuropathy, PAD with peripheral stent placement, CHF, and anxiety. She stated that last year she fell and hit her left side of her head, no serious injury was noted but she has been having frequent headaches on the left side since that time. She currently follows with Uvaldo Donahue at [facility] neurology. Workup was done in the emergency department which was overall unremarkable, CT imaging showed no intracranial hemorrhage, mass, or midline shift. No large vessel occlusion. Patient's NIHSS was 0, due to her loss of consciousness and subsequent slurred/garbled speech hospital medicine was consulted for admission for further workup for possible TIA. Patient was admitted to the medical surgical unit. Initial lab work showed mild MELINA, creatinine 1.4, no anemia, no electrolyte abnormalities. Repeat lab work day of discharge shows improved creatinine at 1.1. MRI of brain head, cardiac echo, carotid duplex were ordered. MRI negative for acute findings, cardiac echo showed a LVEF of 55%. Color Doppler demonstrated possible [id number] interatrial shunt, discussed this with patient and recommended close follow-up with line repairer tower. Carotid duplex showed less than 50% bilateral carotid stenosis. Patient urine culture came back positive for greater than 100,000 gram-negative rods. Patient initiated on Levaquin 750 mg IV, will complete p.o. 5-day total course of Levaquin outpatient. Patient denied urinary symptoms. Assessment of patient medication reveals she take carvedilol 25 mg twice daily and losartan 25 mg daily. Her heart rate has been between 50s to mid 60s during admission without medication. Discussed with patient to reduce dose to carvedilol 12.5 mg twice daily and continue losartan 25 mg daily. Patient should also continue Plavix 75 mg and aspirin 81 mg daily, and rosuvastatin 20 mg at bedtime at discharge. Discussed with patient holding metformin 500 mg at bedtime at this time, patient A1c 5.8%. Total time spent on discharge 32 minutes in counseling, documentation, chart review, and direct care with patient. Exam Data for Last 24 hours Vital signs and Labs for Last 24 Hours: Temp Pulse Resp BP Pulse Ox O2 Del Method 98.1 F 66 16 111/46 L 97 Room Air 03/17/25 07:57 03/17/25 08:00 03/17/25 07:57 03/17/25 07:57 03/17/25 07:57 03/17/25 11:00 Laboratory Results - last 24 hr 03/16/25 15:26: WBC 4.8, RBC 4.22, Hgb 12.3, Hct 38.5, MCV 91.2, MCH 29.1, MCHC 31.9, RDW 13.2, Plt Count 144, MPV 10.7 H, Neut % (Auto) 55.0, Lymph % (Auto) 29.6, [place] % (Auto) 9.7 H, Eos % (Auto) 3.8, Baso % (Auto) 1.7, Neut # (Auto) 2.6, Lymph # (Auto) 1.4, [place] # (Auto) 0.5, Eos # (Auto) 0.2, Baso # (Auto) 0.1, PT 11.7, INR 1.06, APTT 21.9 L, Sodium 140, Potassium 4.8, Chloride 108 H, Carbon Dioxide 24, Anion Gap 12.8, BUN 22 H, Creatinine 1.40 H, Estimated Creat Clear 46, Estimated GFR 37 L, Est GFR ( Amer) 44 L, Glucose 158 H, Calcium 9.9, Total Bilirubin 1.3, AST 37 H, ALT 16, Alkaline Phosphatase 44, Troponin I < 0.01, Total Protein 7.7, Albumin 4.8, Globulin 2.9, Albumin/Globulin Ratio 1.7, Triglycerides 102, Cholesterol 111 L, LDL Cholesterol Direct < 30.00 L, VLDL Cholesterol 20, HDL Cholesterol 63 H, Cholesterol/HDL Ratio 1.8, TSH 3.70, Free T4 0.98, Plasma/Serum Alcohol < 10 03/16/25 18:30: Urine Color Yellow, Urine Appearance Clear, Urine pH 7.5, Ur Specific Alfred 1.010, Urine Protein 2+ A, Urine Glucose (UA) Negative, Urine Ketones Negative, Urine Blood 1+ A, Urine Nitrate Negative, Urine Bilirubin Negative, Urine Urobilinogen 2.0, Ur Leukocyte Esterase Negative, Urine RBC None, Urine WBC 5-10, Ur Squamous Epith Cells Occasional, Urine Bacteria 4+, Urine Opiates Screen Negative, Urine Methadone Screen Negative, Ur Barbituates Screen Negative, Ur Phencyclidine Scrn Negative, Ur Amphetamines Screen Negative, U Benzodiazepines Scrn Negative, Urine Cocaine Screen Negative, U Marijuana (THC) Screen Negative 03/16/25 18:44: Troponin I < 0.01 03/16/25 21:18: POC Glucose 91 03/16/25 21:50: Troponin I < 0.01 03/17/25 05:31: WBC 4.3 L, RBC 3.89 L, Hgb 11.3 L, Hct 35.2 L, MCV 90.5, MCH 29.0, MCHC 32.1, RDW 12.9, Plt Count 111 L, MPV 10.6 H, Neut % (Auto) 55.0, Lymph % (Auto) 28.2, [place] % (Auto) 11.5 H, Eos % (Auto) 3.7, Baso % (Auto) 1.4, Neut # (Auto) 2.4, Lymph # (Auto) 1.2, [place] # (Auto) 0.5, Eos # (Auto) 0.2, Baso # (Auto) 0.1, Sodium 139, Potassium 3.5 D, Chloride 110 H, Carbon Dioxide 22, Anion Gap 10.5, BUN 18 H, Creatinine 1.10 H D, Estimated Creat Clear 57, Estimated GFR 48 L, Est GFR ( Amer) 58 L D, Glucose 83 D, Hemoglobin A1c 5.8, Calcium 8.9 03/17/25 11:29: POC Glucose 93 I & O for Last 24 hours: Intake & Output 03/14/25 03/15/25 03/16/25 03/17/25 23:59 23:59 23:59 23:59 Intake Total 1000 / 1240 480 / 480 Output Total 0 / 0 Balance 1000 / 1240 480 / 480 Weight 82.871 kg 83.506 kg Microbiology Reports for the Last 24 Hours: Microbiology 03/16/25 18:30 Urine,Clean Catch Urine Culture - Preliminary Gram Negative Rods Constitutional Constitutional: no acute distress and cooperative *Routine HEENT Exam Head: Present normocephalic Eye: Present EOMI and PERRL ENT: Present mucous membranes moist *Routine Neck Exam Neck: Present supple and full ROM; Absent lymphadenopathy *Routine Respiratory Exam Respiratory: Present CTA bilaterally, normal respiratory effort, able to speak in complete sentences and symmetric chest movement; Absent wheezes or crackles *Routine Cardiovascular Exam Cardiovascular: Present RRR; Absent murmur *Routine Abdominal Exam Abdominal: Present soft and normoactive bowel sounds; Absent tenderness or distended *Routine Extremities Exam Extremities: Present full ROM, pulses intact and normal capillary refill *Routine Skin Exam Skin: Present intact and dry; Absent erythema *Routine Neurological Exam Neurological: Present alert, oriented X3, moving all extremities, vision grossly intact, hearing grossly intact and normal speech; Absent facial asymmetry Routine Psychiatric Exam Psychiatric: Present normal affect Results Data Completed and Pending Labs on day of discharge: Labs from last 24 hours 03/17/25 03/17/25 03/16/25 11:29 05:31 21:50 WBC 4.3 L RBC 3.89 L Hgb 11.3 L Hct 35.2 L MCV 90.5 MCH 29.0 MCHC 32.1 RDW 12.9 Plt Count 111 L MPV 10.6 H Neut % (Auto) 55.0 Lymph % (Auto) 28.2 [place] % (Auto) 11.5 H Eos % (Auto) 3.7 Baso % (Auto) 1.4 Neut # (Auto) 2.4 Lymph # (Auto) 1.2 [place] # (Auto) 0.5 Eos # (Auto) 0.2 Baso # (Auto) 0.1 PT INR APTT Sodium 139 Potassium 3.5 D Chloride 110 H Carbon Dioxide 22 Anion Gap 10.5 BUN 18 H Creatinine 1.10 H D Estimated Creat Clear 57 Estimated GFR 48 L Est GFR ( Amer) 58 L D Glucose 83 D POC Glucose 93 Hemoglobin A1c 5.8 Calcium 8.9 Total Bilirubin AST ALT Alkaline Phosphatase Troponin I < 0.01 Total Protein Albumin Globulin Albumin/Globulin Ratio Triglycerides Cholesterol LDL Cholesterol Direct VLDL Cholesterol HDL Cholesterol Cholesterol/HDL Ratio TSH Free T4 Urine Color Urine Appearance Urine pH Ur Specific Alfred Urine Protein Urine Glucose (UA) Urine Ketones Urine Blood Urine Nitrate Urine Bilirubin Urine Urobilinogen Ur Leukocyte Esterase Urine RBC Urine WBC Ur Squamous Epith Cells Urine Bacteria Urine Opiates Screen Urine Methadone Screen Ur Barbituates Screen Ur Phencyclidine Scrn Ur Amphetamines Screen U Benzodiazepines Scrn Urine Cocaine Screen U Marijuana (THC) Screen Plasma/Serum Alcohol 03/16/25 03/16/25 03/16/25 21:18 18:44 18:30 WBC RBC Hgb Hct MCV MCH MCHC RDW Plt Count MPV Neut % (Auto) Lymph % (Auto) [place] % (Auto) Eos % (Auto) Baso % (Auto) Neut # (Auto) Lymph # (Auto) [place] # (Auto) Eos # (Auto) Baso # (Auto) PT INR APTT Sodium Potassium Chloride Carbon Dioxide Anion Gap BUN Creatinine Estimated Creat Clear Estimated GFR Est GFR ( Amer) Glucose POC Glucose 91 Hemoglobin A1c Calcium Total Bilirubin AST ALT Alkaline Phosphatase Troponin I < 0.01 Total Protein Albumin Globulin Albumin/Globulin Ratio Triglycerides Cholesterol LDL Cholesterol Direct VLDL Cholesterol HDL Cholesterol Cholesterol/HDL Ratio TSH Free T4 Urine Color Yellow Urine Appearance Clear Urine pH 7.5 Ur Specific Alfred 1.010 Urine Protein 2+ A Urine Glucose (UA) Negative Urine Ketones Negative Urine Blood 1+ A Urine Nitrate Negative Urine Bilirubin Negative Urine Urobilinogen 2.0 Ur Leukocyte Esterase Negative Urine RBC None Urine WBC 5-10 Ur Squamous Epith Cells Occasional Urine Bacteria 4+ Urine Opiates Screen Negative Urine Methadone Screen Negative Ur Barbituates Screen Negative Ur Phencyclidine Scrn Negative Ur Amphetamines Screen Negative U Benzodiazepines Scrn Negative Urine Cocaine Screen Negative U Marijuana (THC) Screen Negative Plasma/Serum Alcohol 03/16/25 15:26 WBC 4.8 RBC 4.22 Hgb 12.3 Hct 38.5 MCV 91.2 MCH 29.1 MCHC 31.9 RDW 13.2 Plt Count 144 MPV 10.7 H Neut % (Auto) 55.0 Lymph % (Auto) 29.6 [place] % (Auto) 9.7 H Eos % (Auto) 3.8 Baso % (Auto) 1.7 Neut # (Auto) 2.6 Lymph # (Auto) 1.4 [place] # (Auto) 0.5 Eos # (Auto) 0.2 Baso # (Auto) 0.1 PT 11.7 INR 1.06 APTT 21.9 L Sodium 140 Potassium 4.8 Chloride 108 H Carbon Dioxide 24 Anion Gap 12.8 BUN 22 H Creatinine 1.40 H Estimated Creat Clear 46 Estimated GFR 37 L Est GFR ( Amer) 44 L Glucose 158 H POC Glucose Hemoglobin A1c Calcium 9.9 Total Bilirubin 1.3 AST 37 H ALT 16 Alkaline Phosphatase 44 Troponin I < 0.01 Total Protein 7.7 Albumin 4.8 Globulin 2.9 Albumin/Globulin Ratio 1.7 Triglycerides 102 Cholesterol 111 L LDL Cholesterol Direct < 30.00 L VLDL Cholesterol 20 HDL Cholesterol 63 H Cholesterol/HDL Ratio 1.8 TSH 3.70 Free T4 0.98 Urine Color Urine Appearance Urine pH Ur Specific Alfred Urine Protein Urine Glucose (UA) Urine Ketones Urine Blood Urine Nitrate Urine Bilirubin Urine Urobilinogen Ur Leukocyte Esterase Urine RBC Urine WBC Ur Squamous Epith Cells Urine Bacteria Urine Opiates Screen Urine Methadone Screen Ur Barbituates Screen Ur Phencyclidine Scrn Ur Amphetamines Screen U Benzodiazepines Scrn Urine Cocaine Screen U Marijuana (THC) Screen Plasma/Serum Alcohol < 10 Preliminary micro results at discharge 03/16/25 18:30 Urine Culture - Preliminary Urine,Clean Catch Gram Negative Rods DS: Diagnosis Discharge Diagnosis (1) TIA (transient ischemic attack): Status: Acute Code(s): G45.9 - Transient cerebral ischemic attack, unspecified (2) Syncope: Status: Acute Code(s): R55 - Syncope and collapse (3) MELINA (acute kidney injury): Status: Acute Code(s): N17.9 - Acute kidney failure, unspecified (4) Diabetes: Status: Acute Code(s): E11.9 - Type 2 diabetes mellitus without complications (5) Hypertension: Status: Acute Code(s): I10 - Essential (primary) hypertension (6) Hyperlipemia: Status: Acute Code(s): E78.5 - Hyperlipidemia, unspecified Meds Home Medications and Allergies Home Medications ?Medication ?Instructions ?Recorded ?Confirmed ?Type aspirin 81 mg capsule 81 mg PO HS 03/16/25 5 History brimonidine 0.2 % eye drops 1 drp ophthalmic (eye) HS 03/16/25 03/16/25 History buspirone 15 mg tablet 15 mg PO BID PRN Anxiety 10/0503/17/25 History clopidogrel 75 mg tablet 75 mg PO DAILY 03/16/2510/05 History dorzolamide 22.3 mg-timolol 6.8 1 drp ophthalmic (eye) HS 03/16/25 03/16/25 History mg/mL eye drops fluoxetine 40 mg capsule 40 mg PO HS 03/16/25 5 History gabapentin 300 mg capsule 600 mg PO BID 03/16/2503/17 History latanoprost 0.005 % eye drops 1 drp ophthalmic (eye) H S 03/16/25 03/16/25 History metformin 500 mg tablet 500 mg PO HS 03/16/25 History Held on 03/17/25. Instructions: until PCP f/u - A1c 5.8% rosuvastatin 20 mg tablet 20 mg PO HS 03/16/25 5 History carvedilol 25 mg tablet 12.5 mg (1/2 x 25 mg) PO BID 30 03/17/25 03/16/25 Rx days #0 tabs levofloxacin 750 mg tablet 750 mg PO DAILY #4 tabs 11/05 Rx New Prescriptions to Start Prescriptions: levofloxacin Cammy Melgoza Allergies Allergy/AdvReac Type Severity Reaction Status Date / Time No Known Allergies Allergy Verified 03/16/25 20:37 Discharge Plan Disposition Patient Disposition: Home, Self-Care Condition: Fair Follow up Plan Follow up with: Uvaldo Donahue MD [Referring, Medical] - 05/30/25 10:30 am Rony Hylton [Referring, Medical] - 2 weeks Aminah De Leon MD [Primary Care Provider, Medical] - 03/22/25 2:00 pm Prescriptions/Medication Reconciliation: New levofloxacin 750 mg tablet 750 mg PO DAILY Qty: 4 0RF Continued fluoxetine 40 mg capsule 40 mg PO HS latanoprost 0.005 % drops 1 drp ophthalmic (eye) HS clopidogrel 75 mg tablet 75 mg PO DAILY brimonidine 0.2 % drops 1 drp ophthalmic (eye) HS gabapentin 300 mg capsule 600 mg PO BID dorzolamide-timolol 22.3-6.8 mg/mL drops 1 drp ophthalmic (eye) HS buspirone 15 mg tablet 15 mg PO BID PRN (Reason: Anxiety) rosuvastatin 20 mg tablet 20 mg PO HS aspirin 81 mg Capsule 81 mg PO HS Changed carvedilol 25 mg tablet 12.5 mg PO BID 30 Days Qty: 0 0RF Held metformin 500 mg tablet 500 mg PO HS Hold Instructions: until PCP f/u - A1c 5.8% Problem Reconciliation Problems Reviewed?: Yes Patient Discharge Instructions ACTIVITY: Continue current activity DIET: continue same diet Patient Instructions: DI for Transient Ischemic Attack Print Language: Liberian Providers Primary Care Provider: Aminah De Leon Admit Provider: Connor Tolbert Attending Provider: Connor Tolbert
[2025-03-17] MEDS: PAT OWN MED ***CLOPIDOGREL 75MG 75 MG PO (12:29)
[2025-03-17] MEDS: PAT OWN MED ***ASPIRIN EC 81MG 81 MG PO (12:29)
--- NOTE | 2025-03-18 10:23 | SW/DCPLANNER ---
Spoke with patient on the phone. Patient stated that she is doing good. Patient stated that she is aware of her upcoming appointments. Patient that she was able to get her medicine picked up from clinic pharmacy. Patient stated that she has no concerns or questions at this time. Bren Sheppard
--- NOTE | 2025-03-19 18:28 | P.EN_ITS ---
Urine culture on 03/19/2025 grew Klebsiella pneumonia resistant to levofloxacin, antibiotic with which patient was discharged on, and sensitive to third- generation cephalosporin. Called patient who stated she was doing well, better than yesterday. Sending prescription of cefdinir 300 mg twice daily to [facility] in [place] at patient's request.
--- NOTE | 2025-03-19 18:28 | EXP.EVENT.NO ---
Urine culture on 03/19/2025 grew Klebsiella pneumonia resistant to levofloxacin, antibiotic with which patient was discharged on, and sensitive to third-generation cephalosporin. Called patient who stated she was doing well, better than yesterday. Sending prescription of cefdinir 300 mg twice daily to [facility] in [place] at patient's request.
== END 2025-03-17 14:35 | disposition home or self-care (01) ==
LOC: ER 15:52 → 2ND 19:57
PROVIDERS: Nurse Practitioner Family; Admitting Provider Internal Medicine Adolescent Medicine; Emergency Provider Student in an Organized Health Care Education/Training Program; PCP Family Medicine; Visit Provider Internal Medicine Adolescent Medicine
DX: G45.9 Transient cerebral ischemic attack, unspecified (principal); E11.21 Type 2 diabetes mellitus with diabetic nephropathy; E11.51 Type 2 diabetes mellitus with diabetic peripheral angiopathy without gangrene; E11.42 Type 2 diabetes mellitus with diabetic polyneuropathy; I11.0 Hypertensive heart disease with heart failure; I50.9 Heart failure, unspecified; N17.9 Acute kidney failure, unspecified; E04.1 Nontoxic single thyroid nodule; E78.5 Hyperlipidemia, unspecified; F41.9 Anxiety disorder, unspecified; H40.9 Unspecified glaucoma; F32.A Depression, unspecified; Z79.82 Long term (current) use of aspirin; Z79.02 Long term (current) use of antithrombotics/antiplatelets; Z79.899 Other long term (current) drug therapy
CPT/HCPCS: 96361; 96365; 36415; 70450; 70496; 70498; 70551; 71045; 80048; 80053; 80061; 80307; 80320; 81001; 82962; 83036; 84439; 84443; 84484; 85025; 85610; 85730; 87086; 87088; 87186; 93005; 93306; 93880; 99285; G0378; J1956; J7030; J7120; Q9967